=== PATIENT | female | born 1955 | race Caucasian/White ===

== ENCOUNTER 2017-05-30 07:07 | Day surgery (SDC) | payer MEDICAID, SELFPAY ==
[2017-05-30] VITALS (7 sets, daily range): BP systolic 129–146; BP diastolic 76–96; PULSE 70–80; RESP 16; TEMP 36.4–36.8; O2SAT 94–100; BMI 45.2
--- NOTE | 2017-05-30 06:30 | RAD_ITS ---
PROCEDURE: Epidural injection. DATE OF EXAMINATION: Chronic low back pain. INDICATION: Female, 62 years old. Intraoperative fluoroscopic imaging provided for epidural injection. RAD/Spine 1 View Any Level IMPRESSION: Intraoperative fluoroscopic services provided for epidural injection. Electronically Signed: Deonte Palencia MD at 12:34 EST Tel [phone], Service support ,
[2017-05-30 07:47] LABS: Bedside Glucose 128 mg/dL (70-110)
[2017-05-30] MEDS: Triamcinolone Acetonide 40 MG/ML Vial (09:20)
== END 2017-05-30 10:23 | disposition home or self-care (01) ==
LOC: SDC 07:08 → AC 07:09
PROVIDERS: Family Provider Family Medicine; PCP Family Medicine; Visit Provider Anesthesiology Pain Medicine
PROC: 3E0S3BZ Introduction of Anesthetic Agent into Epidural Space, Percutaneous Approach (ICD-10-PCS; CPT 62322; principal; 2017-05-30 08:40)
DX: M51.16 Intervertebral disc disorders with radiculopathy, lumbar region (principal); M51.26 Other intervertebral disc displacement, lumbar region; G89.29 Other chronic pain; Z79.899 Other long term (current) drug therapy; Z79.82 Long term (current) use of aspirin; Z79.891 Long term (current) use of opiate analgesic; I10 Essential (primary) hypertension; Z87.891 Personal history of nicotine dependence; I25.10 Atherosclerotic heart disease of native coronary artery without angina pectoris; R01.1 Cardiac murmur, unspecified; G25.81 Restless legs syndrome; K21.9 Gastro-esophageal reflux disease without esophagitis; Z86.711 Personal history of pulmonary embolism; D64.9 Anemia, unspecified; E11.9 Type 2 diabetes mellitus without complications; F32.9 Major depressive disorder, single episode, unspecified
CPT/HCPCS: 01936; 64483; 72020; 77003; 82962; J7120

== ENCOUNTER → 2017-06-21 11:54 | Outpatient (CLI) | payer MEDICAID, SELFPAY ==
--- NOTE | 2017-06-21 12:05 | RAD_ITS ---
STUDY: X-RAY - PELVIS AND BILATERAL HIPS REASON FOR EXAM: Female, 62 years old. Pain. TECHNIQUE: Radiological exam, hip, bilateral, with pelvis when performed; 2 views COMPARISON: None. FINDINGS: There is a non-specific bowel gas pattern. Normal visualized soft tissue structures. There are atherosclerotic vascular calcifications. Normal bilateral iliac wings, sacroiliac joints and visualized sacrum. Normal bilateral superior and inferior pubic rami. Normal pubic symphysis. Normal bilateral ischial tuberosities. Normal visualized right femoral head. Normal right acetabulum. Normal right hip joint. Normal visualized left femoral head. Normal left acetabulum. Normal left hip joint. RAD/Hips B/L min 2 views w/ Pelvis IMPRESSION: Normal x-ray examination of the pelvis and bilateral hips. Electronically Signed: Adeel Santos MD at 21:01 EST , Service support ,
== END ==
PROVIDERS: Family Provider Family Medicine; PCP Family Medicine; Visit Provider Anesthesiology Pain Medicine
DX: M25.551 Pain in right hip (principal); M25.552 Pain in left hip
CPT/HCPCS: 73521

== ENCOUNTER 2018-06-06 10:07 | Inpatient (IN) | payer SELFPAY ==
[2018-06-06] VITALS (10 sets, daily range): BP systolic 125–184; BP diastolic 69–101; PULSE 63–84; RESP 16–26; TEMP 36.6–37.1; O2SAT 95–98; BMI 49.6; BMI 48.2; BMI 48.3
--- NOTE | 2018-06-06 10:35 | RAD_ITS ---
STUDY: X-RAY CHEST REASON FOR EXAM: Female, 63 years old. One week history of shortness of breath and chest pain. TECHNIQUE: Single AP portable view of the chest. COMPARISON: Comparison is made with prior study dated December 24, 2015. FINDINGS: There is evidence of vascular congestion and CHF. There is no demonstrated pleural abnormality. There is borderline cardiomegaly. Normal mediastinum and shyanne. Normal visualized pulmonary arteries. Normal visualized aortic arch and descending thoracic aorta. There are degenerative changes of the visualized thoracic spine. Normal visualized ribs, clavicles, and shoulders. There is no demonstrated abnormality of the visualized soft tissue structures of the upper abdomen. RAD/Chest 1 View (Portable) IMPRESSION: Vascular congestion and CHF. Electronically Signed: Deonte Palencia MD at 11:03 EST , Service support ,
--- NOTE | 2018-06-06 10:35 | EKG12_ITS ---
Test Reason : CP SOB Blood Pressure : / mmHG Vent. Rate : 086 BPM Atrial Rate : 086 BPM P-R Int : 152 ms QRS Dur : 084 ms QT Int : 368 ms P-R-T Axes : 060 046 034 degrees QTc Int : 440 ms Normal sinus rhythm Normal ECG Confirmed by FRANCIS RAMSEY, CONCHA ([id number]), assignment editor DEREK ROBB ([id number]) on 06/09/2018 3:21:43 PM Referred By: Jaspreet Vora Confirmed By:CONCHA BLANCO MD
[2018-06-06 10:43] LABS: Absolute Lymphocyte Count 1.44 X10^3/ul (0.83-4.51); Absolute Neutrophil Count 3.7 X10^3/uL (2.0-7.7); Basophil# 0.05 X10^3/uL; Basophil% 0.8 % (0-1); Eosinophil# 0.16 X10^3/uL; Eosinophils% 2.6 % (0-5); Hematocrit 36.9 % (37-47); Lymphocyte # 1.44 X10^3/ul (4.0); Mean Corp Hgb Conc 29.8 g/gl (32-36); Mean Corpuscular Hgb 27.8 pg (27.0-32.0); Mean Corpuscular Volume 93.4 fL (81-99); Mean Platelet Vol. 10.8 fl (6.2-12.0); Monocyte% 14.4 % (0-10); Neutrophil # 3.69 X10^3/uL (2.7-7.7); Neutrophil % 58.9 % (47-70); Platelet Count 216 K/mm3 (150-450); RBC Distribution Width CV 14.8 % (11.6-14.6); RBC Distribution Width SD 49.6 fl (35.1-43.9); Red Blood Count 3.95 M/mm3 (4.2-5.4); White Blood Count 6.3 K/mm3 (4.4-11.0)
[2018-06-06 10:44] LABS: POSITIVE COUNT NO; POSITIVE DIFFERENTIAL NO; POSITIVE MORPHOLOGY NO
--- NOTE | 2018-06-06 10:50 | ED.VISSUMM ---
- ER Visit Summary Date of Service: 06/06/18 Chief Complaint: Chest pain History of Present Illness: The patient is a 63 F 3 of noncemented diabetes currently off her meds. Hypertension, high cholesterol and prior DVT and PE. Off blood thinners because she was taken off from his blood clots for several years ago. She states that she has had chest pain for the last week which feels like an elephant on her chest. Associated with exertion and exertional dyspnea. Currently she states she is pain-free. One week ago to 2 weeks ago she ran out of her blood pressure medication and then about a week ago ran out of her diuretic. Those have since been refilled by the primary care physician's office calling them in. Initially she felt like she was retaining fluids with swelling in her abdomen hands face and legs. She said he was restarting the medications she still feels swollen and the pain has not gotten any better. Currently she is pain-free. She denies any known cardiac disease, stents or any prior bypass. She states this is totally different than the pain she had before when she had pulmonary emboli. She denies any pleuritic component. She denies any hemoptysis. She denies any calf pain. Physical Examination: Older female no acute distress. Initial blood pressure 184/101. Pulse ox 95% on room air no hypoxia. H EENT exam unremarkable. Neck nontender no JVD. Lungs clear to auscultation bilaterally. Heart regular rate and rhythm rate about 80 no murmur. Chest wall nontender. No ecchymosis or bruising. Abdomen soft nontender. Normal bowel sounds no peritoneal signs. Obese. Remedies moves all 4. Equal symmetrical radial pulses. 5 out of 5 paving supervisor strength. Dorsi plantar flexion intact. Trace to 1+ edema bilaterally. Calves nontender. No cords. Neurologically she is awake alert with no focal motor deficits. Test Results: Chest x-ray portable 1 view read by myself and radiologist shows consistent with CHF. EKG sinus rhythm rate 86 with no acute signs of KS or anemia. CBC White count of 6 hemoglobin 11. Electrolytes unremarkable normal BUN/creatinine and gap. Glucose elevated 211 INR normal. Troponin normal. BNP is only 41. Emergency Department Course and Treatment: Patient undergo cardiac workup. Patient doing well at 11 AM. Currently pain-free. She will be treated with IV Lasix for her congestive heart failure on chest x-ray. I will speak to hospitalist about admission for chest pain of uncertain etiology. Treatment Plan: Admission Disposition: Admission Impression: Acute exertional chest pain of uncertain etiology with exertional dyspnea CHF Medical noncompliance This note was generated with [employer] dictation software. It may contain incorrect words, spelling, and punctuation that were not noted in review of the chart prior to signing ED Disposition - Plan for ED Patient: Chief Complaint: Chest Pain Referrals: Jerald Mckeon MD [Primary Care Provider] -
--- NOTE | 2018-06-06 10:53 | ED.DCSUM_ITS ---
- ER Visit Summary Date of Service: 06/06/18 Chief Complaint: Chest pain History of Present Illness: The patient is a 63 F 3 of noncemented diabetes currently off her meds. Hypertension, high cholesterol and prior DVT and PE. Off blood thinners because she was taken off from his blood clots for several ye ars ago. She states that she has had chest pain for the last week which feels like an elephant on her chest. Associated with exertion and exertional dyspnea. Currently she states she is pain-free. One week ago to 2 weeks ago she ran out of her blood pressure medication and then about a week ago ran out of her diuretic. Those have since been refilled by the primary care physician's office calling them in. Initially she felt like she was retaining fluids with swelling in her abdomen hands face and legs. She said he was restarting the medications she still feels swollen and the pain has not gotten any better. Currently she is pain-free. She denies any known cardiac disease, stents or any prior bypass. She states this is totally different than the pain she had before when she had pulmonary emboli. She denies any pleuritic component. She denies any hemoptysis. She denies any calf pain. Physical Examination: Older female no acute distress. Initial blood pressure 184/101. Pulse ox 95% on room air no hypoxia. H EENT exam unremarkable. Neck nontender no JVD. Lungs clear to auscultation bilaterally. Heart regular rate and rhythm rate about 80 no murmur. Chest wall nontender. No ecchymosis or bruising. Abdomen soft nontender. Normal bowel sounds no peritoneal signs. Obese. Remedies moves all 4. Equal symmetrical radial pulses. 5 out of 5 outbound sales professional strength. Dorsi plantar flexion intact. Trace to 1+ edema bilaterally. Calves nontender. No cords. Neurologically she is awake alert with no focal motor deficits. Test Results: Chest x-ray portable 1 view read by myself and radiologist shows consistent with CHF. EKG sinus rhythm rate 86 with no acute signs of VT or anemia. CBC White count of 6 hemoglobin 11. Electrolytes unremarkable normal BUN/creatinine and gap. Glucose elevated 211 INR normal. Troponin normal. BNP is only 41. Emergency Department Course and Treatment: Patient undergo cardiac workup. Patient doing well at 11 AM. Currently pain-free. She will be treated with IV Lasix for her congestive heart failure on chest x-ray. I will speak to hospitalist about admission for chest pain of uncertain etiology. Treatment Plan: Admission Disposition: Admission Impression: Acute exertional chest pain of uncertain etiology with exertional dyspnea CHF Medical noncompliance This note was generated with [employer] dictation software. It may contain incorrect words, spelling, and punctuation that were not noted in review of the chart prior to signing ED Disposition - Plan for ED Patient: Chief Complaint: Chest Pain Referrals: Jerald Mckeon MD [Primary Care Provider] -
[2018-06-06 11:00] LABS: Anion Gap 10 (5-15); BUN 13 mg/dL (7-18); BUN/Creat Ratio 15.6 RATIO (10-20); Calcium,Total 8.1 mg/dL (8.5-10.1); Chloride 103 mmol/L (98-107); Creatinine, Serum 0.83 mg/dL (0.55-1.02); EST Glomerular Filtration Rate 74 mL/min (>60); Est Glom Filt Rate - Afr Amer 89 mL/min (>60); Estimated Creatinine Clearance 60.69 ml/min; Glucose 211 mg/dL (74-106); Potassium 3.9 mmol/L (3.5-5.1); Sodium Level 139 mmol/L (136-145)
[2018-06-06 11:07] LABS: Prothrombin Time (Protime)PT. 12.8 SECONDS (11.7-14.9)
[2018-06-06 11:08] LABS: BNP,B-Type NATRIURETIC PEPTIDE 41.2 pg/mL (0-100)
[2018-06-06] MEDS: Aspirin 81 MG TAB.CHEW 324 MG PO (11:25)
[2018-06-06] MEDS: Furosemide 40 MG/4 ML Vial IV (11:25)
--- NOTE | 2018-06-06 12:21 | ECHOD_ITS ---
Reason For Study: CHF Procedure This was a 2D Doppler, Color Flow transthoracic echocardiogram. The study was technically difficult. Exam performed portable in patient room. Left Ventricle Based upon the 2D echocardiographic images obtained there appears to be grossly normal left ventricular size, wall motion, and systolic function. The estimated ejection fraction is 55 %. Diastolic function is indeterminate. Right Ventricle Normal RV size. Normal systolic function. Atria Normal left atrium. Normal right atrium. No doppler evidence for ASD. Mitral Valve Normal mitral valve. The mitral valve chordae are thickened and/or calcified. Trivial mitral valve insufficiency. Tricuspid Valve Normal tricuspid valve. Trivial tricuspid valve insufficiency. Unable to estimate RV systolic pressure/pulmonary artery pressure due to technically difficult study. Aortic Valve The aortic valve is not well visualized. Pulmonic Valve The pulmonic valve is not well visualized. Great Vessels Normal sized aortic root. Pericardium/Pleural No pericardial effusion. MMode/2D Measurements & Calculations LVIDd: 5.0 cm IVSd: 1.1 cm Ao root diam: 2.5 cm LVIDs: 3.4 cm LVPWd: 1.1 cm RVDd: 3.4 cm FS: 31.6 % LAV(MOD-bp): 65.0 ml LA A4 area: 20.3 cm2 LA dimension(2D): 2.8 cm LAV(MOD-bp) Indexed: 28.8 ml/m2 LAV(MOD-sp2): 63.7 ml LAV(MOD-sp4): 63.6 ml RA A4 area: 15.8 cm2 Doppler Measurements & Calculations MV E max frankie: 93.0 cm/sec Lat Peak E' Frankie: 9.8 cm/sec Med Peak E' Frankie: 7.4 cm/sec MV A max frankie: 84.4 cm/sec E/E' lat: 9.5 E/E' med: 12.6 MV E/A: 1.1 Ao V2 max: 145.6 cm/sec LV V1 max: 95.5 cm/sec PA V2 max: 95.6 cm/sec Ao max P.5 mmHg LV V1 max P.7 mmHg Interpretation Summary The study was technically difficult. Based upon the 2D echocardiographic images obtained there appears to be grossly normal left ventricular size, wall motion, and systolic function. The estimated ejection fraction is 55 %. The mitral valve chordae are thickened and/or calcified. Trivial mitral valve insufficiency. Trivial tricuspid valve insufficiency. Unable to estimate RV systolic pressure/pulmonary artery pressure due to technically difficult study. Diastolic function is indeterminate. Ordering Physician: Pinky Vora Referring Physician: Jerald Mckeon Performed By: Kenia Frias, LIA, RVT
--- NOTE | 2018-06-06 12:22 | EKG12_ITS ---
Test Reason : CP ADMIT Blood Pressure : / mmHG Vent. Rate : 068 BPM Atrial Rate : 068 BPM P-R Int : 158 ms QRS Dur : 084 ms QT Int : 418 ms P-R-T Axes : 068 050 039 degrees QTc Int : 444 ms Normal sinus rhythm with sinus arrhythmia Normal ECG Confirmed by POLLO RAMSEY, ADRIÁN ([id number]), assistant film editor DEREK ROBB ([id number]) on 06/08/2018 8:28:16 AM Referred By: Jaspreet Vora Confirmed By:ADRIÁN ABAD MD
[2018-06-06 13:13] LABS: Magnesium 1.4 mg/dL (1.6-2.6); Thyroid Stim Hormone (TSH) 3.73 uIU/mL (0.358-3.74)
--- NOTE | 2018-06-06 13:21 | PCM.HP.STD ---
Problem List (1) Super obesity Status: Chronic (2) Chest tightness or pressure Status: Acute (3) Diastolic CHF Status: Acute Qualifiers: Heart failure chronicity: acute Qualified Code(s): I50.31 - Acute diastolic (congestive) heart failure (4) Hypertensive emergency Status: Acute Comment: with acute CHF (5) Depression Status: Chronic (6) Chronic pain Status: Chronic Qualifiers: Chronic pain type: other chronic pain Qualified Code(s): G89.29 - Other chronic pain Comment: back pain (7) CELIA (iron deficiency anemia) Status: Resolved Qualifiers: Iron deficiency anemia type: chronic blood loss Qualified Code(s): D50.0 - Iron deficiency anemia secondary to blood loss (chronic) (8) CAD (coronary artery disease) Status: Chronic (9) HTN (hypertension) Status: Chronic Comment: pt denies but, this is listed on an old H&P (10) Hyperlipemia Status: Chronic (11) Pulmonary embolism on right Status: Resolved Comment: provoked(following abdominal surgery) (12) Type II diabetes mellitus Status: Chronic (13) History of Prudencio-en-Y gastric bypass Status: Chronic (14) Former smoker, stopped smoking many years ago Status: Acute Comment: stopped smoking in 1999 History of Present Illness Date of Admission: 06/06/18 Chief Complaint: shortness of breath and chest pressure with exertion The patient is a 63 year old F with a past medical history of depression, chronic back pain, narcotic dependence, superobesity, coronary artery disease (pt denies), hypertension, hyperlipidemia, pulmonary embolism following abdominal surgery, diabetes mellitus type 2 ( no medication for quite a while), Prudencio-en-Y gastric bypass, former smoking history (quit in 1999) who presented to the emergency department at [facility] on 06/06/2018 complaining of dyspnea on exertion, chest heaviness with exertion, edema of her legs and a 12 pound weight gain recently. She ran out of her antihypertensives and diuretics approximately 2 weeks ago. She got her prescriptions refilled recently and the edema has improved but the chest pressure and the [place] have persisted. She tells me that she lost her job, then lost her insurance and she could not afford to go to the doctor or pay for medications. Vital signs of presentation to the emergency room were temp 98.1, pulse rate 84, blood pressure 184/101, respiratory rate 26 and she was 95% saturated on room air. White blood cell count was within normal limits. BMP was unremarkable. Troponin was less than 0.015 and the BNP was 41.2. Hemoglobin A1c is uncontrolled at 8.4. Chest x-ray showed increased pulmonary vascular congestion consistent with congestive heart failure. She tells me that she has had stress tests in the past and 2 cardiac catheterizations and she has no CAD....can not remember the date of the last cath OR where it was done. Past Medical History Past Medical History (Chronic Problems): Chronic Problems Super obesity (Chronic) Depression (Chronic) Chronic pain (Chronic) back pain History of Prudencio-en-Y gastric bypass (Chronic) Type II diabetes mellitus (Chronic) CAD (coronary artery disease) (Chronic) Hyperlipemia (Chronic) HTN (hypertension) (Chronic) pt denies but, this is listed on an old H&P Allergies naproxen Adverse Reaction (Verified 06/06/18 10:16) Itching Home Medications: Ambulatory Orders Medication Instructions Recorded Calcium Carbonate/Vitamin D3 1 each PO BID 09/27/13 [Calcium 600-Vit D3 800 Tablet] Cyanocobalamin (Vitamin B-12) 1,000 mcg PO DAILY 09/27/13 [Vitamin B-12] DiphenhydrAMINE [Benadryl] 50 mg PO QHS PRN PRN 09/27/13 Fluoxetine [Prozac] 20 mg PO DAILY 09/27/13 Gabapentin [Neurontin] 300 mg PO 4X/DAY 09/27/13 Lisinopril [Zestril] 10 mg PO DAILY 09/27/13 Multivitamin No.44/Vit D3/K 1 each PO DAILY 09/27/13 [Multivitamins Softgels] Pravastatin [Pravachol] 20 mg PO QHS 09/27/13 Triamterene 75MG/Hctz 50MG 1 tablet PO DAILY 09/27/13 [Maxzide] Aspirin [Aspirin, Baby] 81 mg PO QHS 09/28/13 Atenolol 25 mg PO QHS 08/21/16 Oxycodone HCl/Acetaminophen 1 tab PO Q6H 08/21/16 [Oxycodon-Acetaminophen 7.5-325] Iron Poly/Vit C [Niferex-150] 150 mg PO DAILYCM #60 capsule 08/22/16 Pantoprazole Sodium [Protonix] 40 mg PO DAILY #60 tablet 08/22/16 Biotin 5 mg PO DAILY 06/06/18 Lactobacillus Rhamnosus GG 1 each PO DAILY 06/06/18 [Culturelle] Surgical History: cholecystectomy, hysterectomy, total knee arthroplasty, - - Breast reduction surgery, gastric bypass, cholecystectomy, 2 knee replacements, right lung nodule resection, mediastinoscopy, carpal tunnel surgery, multiple D&C Psychiatric History: Depression 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 Another brother has heart issues Review of Systems Constitutional: Reports: - - tells me that she is hungry all the time and has gained 40 lbs. Denies: Chills, Fever, Night Sweats, Weight Change Eyes: Denies: Blurred vision HEENT: Denies: Head Aches, Sinus Congestion, Sinus Drainage Cardiovascular: Reports: Chest Pressure, Edema, Orthopnea - wedny when lying on the Left side. Denies: Light Headedness, Palpitations Respiratory: Reports: Shortness of breath at rest, Shortness of breath upon exertion. Denies: Cough, Pleuritic Pain, Sputum production, Wheezing Gastrointestinal: Denies: Abdominal Pain, Nausea, Vomiting Genitourinary: Denies: Dysuria Musculoskeletal: Reports: Back Pain - chronic. Denies: Joint Pain, Joint Tenderness Skin: Denies: Rash, Wounds Neurological: Denies: Focal weakness, Numbness, Tingling, Seizures Psychiatric: Denies: Anxiety, Depression, Homicidal Ideations, Suicidal Ideations Endocrine: Reports: Change in Body Habitus - has gained 40 lbs since losing her job and losing health insurance Hematologic/ Lymphatic: Reports: Hx of blood clot - PE after abdominal surgery in Dec 2015. Denies: Easy Bruising, Easy Bleeding VTE Information - Inpt Only VTE Present on Admission: No VTE Mechan Device Prophylaxis: Knee High GOPI Hose VTE Pharm Prophylaxis ordered?: Yes Patient Problems: Active and Suspected Problems Chest tightness or pressure (Acute) Diastolic CHF (Acute) Hypertensive emergency (Acute) with acute CHF Former smoker, stopped smoking many years ago (Acute) stopped smoking in 1999 - Physical Exam General: Alert, Oriented x3, Cooperative, No apparent distress, Well developed, Well nourished HEENT: Atraumatic, PERRLA, EOMI, Normocephalic Oral: Moist Mucosa Neck: Supple, No JVD, Negative Carotid Bruits Lungs: Diminished, Rales - few in the bases - has already urinated several times since the Lasix in the ER Cardiovascular: Regular rate, Normal S1, Normal S2, No murmurs, No rub noted, No Gallop Abdomen: Bowel Sounds Present, Soft, Non Tender, Non-Distended, Obese Extremities: No clubbing, No cyanosis, Capillary Refill Less than 3 Seconds, Edema - 1+ distal LE's Skin: No rashes, No breakdown Musculoskeletal: No Tenderness to Palpation of Joints or Extremities Neurological: Cranial nerves II-XII grossly intact, Neuro grossly intact Psych/Mental Status: Normal Affect, Appropriate Vital Signs Temp Pulse Resp BP Pulse Ox 98.4 F 63 18 125/79 H 96 06/06/18 12:23 06/06/18 12:23 06/06/18 12:23 06/06/18 12:23 06/06/18 12:23 Oxygen Flow Rate (L/min) 2 Oxygen Delivery Method Room Air Weight: 281 lb 4.957 oz Body Mass Index (BMI) 48.2 Laboratory Tests Past 24 Hrs 06/06/18 06/06/18 06/06/18 10:34 10:34 10:34 WBC 6.3 RBC 3.95 L Hgb 11.0 L Hct 36.9 L MCV 93.4 MCH 27.8 MCHC 29.8 L RDW 14.8 H RDW Differential 49.6 H Plt Count 216 MPV 10.8 Immature Gran % (Auto) 0.300 Neut % (Auto) 58.9 Lymph % (Auto) 23.0 Lyman % (Auto) 14.4 H Eos % (Auto) 2.6 Baso % (Auto) 0.8 Absolute Neuts (auto) 3.7 Absolute Lymphs (auto) 1.44 Total Counted Not Reportable PT INR Sodium 139 Potassium 3.9 Chloride 103 Carbon Dioxide 26.0 Anion Gap 10 BUN 13 Creatinine 0.83 Estim Creat Clear Calc 60.69 Est GFR (MDRD) Af Amer 89 Est GFR (MDRD) Non-Af 74 BUN/Creatinine Ratio 15.6 Glucose 211 H Hemoglobin A1c Calcium 8.1 L Magnesium Troponin I < 0.015 B-Natriuretic Peptide 41.2 TSH 06/06/18 06/06/18 06/06/18 10:34 10:34 13:00 WBC RBC Hgb Hct MCV MCH MCHC RDW RDW Differential Plt Count MPV Immature Gran % (Auto) Neut % (Auto) Lymph % (Auto) Lyman % (Auto) Eos % (Auto) Baso % (Auto) Absolute Neuts (auto) Absolute Lymphs (auto) Total Counted PT 12.8 INR 1.0 Sodium Potassium Chloride Carbon Dioxide Anion Gap BUN Creatinine Estim Creat Clear Calc Est GFR (MDRD) Af Amer Est GFR (MDRD) Non-Af BUN/Creatinine Ratio Glucose Hemoglobin A1c Pending Calcium Magnesium 1.4 L Troponin I B-Natriuretic Peptide TSH 3.73 Assessment/Plan All Active Problems Chest tightness or pressure (Acute) Diastolic CHF (Acute) Hypertensive emergency (Acute) Former smoker, stopped smoking many years ago (Acute) CELIA (iron deficiency anemia) (Resolved) Pulmonary embolism on right (Resolved) Impressions 1. hypertensive emergency with acute CHF 2. uncontrolled HTN -m due to non-compliance with medication 3. chest pressure with exertion 4. uncontrolled DM II - states she has gained 40 lbs and she is hungry all the time 5. super morbid obesity with a BMI of 48 6. Depression 7. Chronic back pain-follows with Dr. Dr. Alberts 8. Chronic narcotic dependence 9. Provoked pulmonary embolus in the past 10. Hyperlipidemia 11. History of Prudencio-en-Y gastric bypass 12. Former smoker-quit in 1999 Admit to a monitored bed on PCU Weigh at admission to the floor and then daily Acccurate I&O's Chest XRAY BNP Given 40 mg IV of Lasix in the emergency department and her lungs are currently clear to auscultation. I suspect this is primarily diastolic dysfunction and will resolve with blood pressure control. We will restart hydrochlorothiazide/triamterene for blood pressure control ECHO to evaluate LV EF and wall motion Recheck lab in the AM Salt restriction Dietary consult for education regarding low sodium diet Serial cardiac enzymes Chemical nuclear stress test in the a.m. Code Visit Inpatient E&M: 54412 Init Hosp L3
[2018-06-06 13:27] LABS: Hemoglobin A1c 8.4 % (4.2-6.3)
--- NOTE | 2018-06-06 13:39 | CASEMGMT ---
Per Dr. Vora, she would like Behavioral health consulted for pt at this time for depression. Call to Jonathan at [facility] and referral made at this time. Jonathan states he may be able to come this afternoon but if not then he will definitely come tomorrow. Dr. Vora aware and voices understanding. Jose ZAMUDIO CM
[2018-06-06] MEDS: Lisinopril 10 MG Tablet PO (15:48)
[2018-06-06 17:01] LABS: Bedside Glucose 149 mg/dL (70-110)
[2018-06-06] MEDS: oxyCODONE 5 MG Tablet PO (18:21)
[2018-06-06] MEDS: Acetaminophen 325 MG Tablet 650 MG PO (18:21)
[2018-06-06] MEDS: 0.9% NaCl Peripheral Flush Adult/Peds IV ×2 (18:50→22:15)
[2018-06-06] MEDS: Gabapentin 300 MG Capsule PO (22:14)
[2018-06-06] MEDS: Pravastatin 20 MG Tablet PO (22:14)
[2018-06-06] MEDS: Aspirin 81 MG TAB.CHEW PO (22:14)
[2018-06-06] MEDS: Atenolol 25 MG Tablet PO (22:14)
[2018-06-06] MEDS: Insulin Lispro 100 UNIT/ML INSULN.PEN SC (22:15)
[2018-06-06 22:16] LABS: Bedside Glucose 262 mg/dL (70-110)
[2018-06-06] MEDS: MELATONIN 3 MG TABLET PO (22:33)
[2018-06-07] VITALS (11 sets, daily range): BP systolic 132–159; BP diastolic 70–86; PULSE 59–82; RESP 15–16; TEMP 36.5–37.2; O2SAT 95–97
[2018-06-07 05:23] LABS: Hematocrit 38.1 % (37-47); Hemoglobin 11.5 g/dl (12.0-15.0); Mean Corp Hgb Conc 30.2 g/gl (32-36); Mean Corpuscular Volume 92.9 fL (81-99); Mean Platelet Vol. 11.3 fl (6.2-12.0); Platelet Count 226 K/mm3 (150-450); RBC Distribution Width CV 14.7 % (11.6-14.6); RBC Distribution Width SD 47.6 fl (35.1-43.9); White Blood Count 5.5 K/mm3 (4.4-11.0)
[2018-06-07 05:24] LABS: Scan Indicated on CBC? Y/N NO
[2018-06-07 05:26] LABS: Prothrombin Time (Protime)PT. 13.1 SECONDS (11.7-14.9)
[2018-06-07 05:46] LABS: ALB/GLOB Ratio 0.9 RATIO (0.9-2.4); AST(SGOT) 19 U/L (15-37); Alanine Aminotransfer ALT/SGPT 25 U/L (13-56); Albumin, Serum 3.3 g/dL (3.2-5.0); Alkaline Phosphatase 93 U/L (45-117); Anion Gap 9 (5-15); BUN 13 mg/dL (7-18); BUN/Creat Ratio 17.7 RATIO (10-20); Calcium,Total 8.3 mg/dL (8.5-10.1); Chloride 102 mmol/L (98-107); Cholesterol 138 mg/dL (200); Creatinine, Serum 0.74 mg/dL (0.55-1.02); EST Glomerular Filtration Rate 85 mL/min (>60); Est Glom Filt Rate - Afr Amer 103 mL/min (>60); Estimated Creatinine Clearance 68.07 ml/min; Globulin 3.6 g/dL (2.2-4.2); Glucose 193 mg/dL (74-106); High Density Lipoprotein 36 mg/dL; Magnesium 1.6 mg/dL (1.6-2.6); Potassium 4.2 mmol/L (3.5-5.1); Protein, Total 6.9 g/dL (6.4-8.2); Sodium Level 140 mmol/L (136-145); Triglycerides 191 mg/dL; Very Low Density Lipoprotein 38 mg/dL (5-40)
[2018-06-07] MEDS: Pantoprazole Sodium 40 MG Tablet PO (05:53)
[2018-06-07] MEDS: Magnesium Oxide 400 MG Tablet PO (05:53)
[2018-06-07] MEDS: Gabapentin 300 MG Capsule PO ×4 (05:53→22:17)
[2018-06-07] MEDS: Lisinopril 10 MG Tablet PO (05:53)
--- NOTE | 2018-06-07 05:55 | EKG12_ITS ---
Test Reason : AM EKG Blood Pressure : / mmHG Vent. Rate : 064 BPM Atrial Rate : 064 BPM P-R Int : 166 ms QRS Dur : 086 ms QT Int : 446 ms P-R-T Axes : 067 059 052 degrees QTc Int : 460 ms Normal sinus rhythm with sinus arrhythmia Normal ECG When compared with ECG of 06-JUN-2018 12:49, MANUAL COMPARISON REQUIRED, DATA IS UNCONFIRMED Confirmed by FRANCIS RAMSEY, CONCHA ([id number]), film editor DEREK ROBB ([id number]) on 06/09/2018 3:45:21 PM Referred By: Jaspreet Vora Confirmed By:CONCHA BLANCO MD
[2018-06-07] MEDS: oxyCODONE 5 MG Tablet PO ×3 (06:02→18:12)
[2018-06-07 06:41] LABS: Bedside Glucose 189 mg/dL (70-110)
--- NOTE | 2018-06-07 06:41 | NURSING ---
Patient off floor at this time to [facility] for stress test.
--- NOTE | 2018-06-07 06:53 | PCM.PROGNOTE ---
Patient Problems: Active and Suspected Problems Chest tightness or pressure (Acute) Diastolic CHF (Acute) Hypertensive emergency (Acute) with acute CHF Former smoker, stopped smoking many years ago (Acute) stopped smoking in 1999 Subjective: 63-year-old female admitted to [facility] on 06/06/2018 with acute diastolic congestive heart failure and chest pressure. All events the past 24 hours of been reviewed. Blood pressure has been better controlled with restarting her antihypertensives and diuresis. Blood pressure since noon on 06/06 has ranged from 125/79-155/71. Intake and output were ordered but are not accurate. Weight has decreased from 281 pounds and 4.9 ounces to 277 pounds and 1.9 ounces today. All lab was personally reviewed. Creatinine is stable at 0.74 and the electrolytes are within normal limits. Hemoglobin A1c was 8.4% and the patient has not been taking any medication for diabetes mellitus or checking her blood sugars at home. Magnesium was low at 1.4 and was supplemented with 2 g of IV mag. Magnesium today is normal at 1.6. LFTs are normal. LDL is 64 and the HDL is 36. TSH was within normal limits. Highest blood sugar was 262. Chemical nuclear stress test negative today with a 54% gated nuclear ejection fraction Telemetry shows normal sinus rhythm with one 5 beat run of nonsustained ventricular tachycardia this morning. She continues to complain of chest pressure and shortness of breath with exertion Objective: PHYSICAL EXAM: GENERAL: alert, oriented X 3, Cooperative, looks apprehensive ORAL: moist mucosa, no mucosal lesions NECK: No JVD, supple, trachea midline LUNGS: CTA but diminished, symmetric chest expansion no conversational dyspnea, not tachypneic at rest, no accessory muscle use HEART: RRR, Normal S1 and S2, no rub, no gallop, no murmur ABDOMEN: soft, NT, ND, BS present, no guarding with palpation EXTREMITIES: no edema, no cyanosis, no calf tenderness SKIN: No rashes, no breakdown NEUROLOGIC: no focal neurologic deficits PSYCH: appropriate, normal affect, pleasant - Physical Exam Vital Signs Temp Pulse Resp BP Pulse Ox 98.4 F 67 16 155/71 H 95 06/07/18 05:45 06/07/18 05:45 06/07/18 05:45 06/07/18 05:45 06/07/18 05:45 Oxygen Flow Rate (L/min) 2 Oxygen Delivery Method Room Air Weight: 277 lb 1.937 oz Body Mass Index (BMI) 48.2 Intake and Output for Last 24 Hours 06/05/18 06/06/18 06/07/18 23:59 23:59 23:59 Intake Total 200 / 200 339.2 / 339.2 Balance 200 / 200 339.2 / 339.2 Laboratory Tests Past 24 Hrs 06/06/18 06/06/18 06/06/18 10:34 10:34 10:34 WBC 6.3 RBC 3.95 L Hgb 11.0 L Hct 36.9 L MCV 93.4 MCH 27.8 MCHC 29.8 L RDW 14.8 H RDW Differential 49.6 H Plt Count 216 MPV 10.8 Immature Gran % (Auto) 0.300 Neut % (Auto) 58.9 Lymph % (Auto) 23.0 Tarrant % (Auto) 14.4 H Eos % (Auto) 2.6 Baso % (Auto) 0.8 Absolute Neuts (auto) 3.7 Absolute Lymphs (auto) 1.44 Total Counted Not Reportable PT INR Sodium 139 Potassium 3.9 Chloride 103 Carbon Dioxide 26.0 Anion Gap 10 BUN 13 Creatinine 0.83 Estim Creat Clear Calc 60.69 Est GFR (MDRD) Af Amer 89 Est GFR (MDRD) Non-Af 74 BUN/Creatinine Ratio 15.6 Glucose 211 H Hemoglobin A1c Calcium 8.1 L Magnesium Total Bilirubin AST ALT Alkaline Phosphatase Troponin I < 0.015 B-Natriuretic Peptide 41.2 Total Protein Albumin Globulin Albumin/Globulin Ratio Triglycerides Cholesterol LDL Cholesterol VLDL Cholesterol HDL Cholesterol TSH 06/06/18 06/06/18 06/06/18 10:34 10:34 13:00 WBC RBC Hgb Hct MCV MCH MCHC RDW RDW Differential Plt Count MPV Immature Gran % (Auto) Neut % (Auto) Lymph % (Auto) Tarrant % (Auto) Eos % (Auto) Baso % (Auto) Absolute Neuts (auto) Absolute Lymphs (auto) Total Counted PT 12.8 INR 1.0 Sodium Potassium Chloride Carbon Dioxide Anion Gap BUN Creatinine Estim Creat Clear Calc Est GFR (MDRD) Af Amer Est GFR (MDRD) Non-Af BUN/Creatinine Ratio Glucose Hemoglobin A1c 8.4 H Calcium Magnesium 1.4 L Total Bilirubin AST ALT Alkaline Phosphatase Troponin I B-Natriuretic Peptide Total Protein Albumin Globulin Albumin/Globulin Ratio Triglycerides Cholesterol LDL Cholesterol VLDL Cholesterol HDL Cholesterol TSH 3.73 06/06/18 06/06/18 06/07/18 13:55 16:45 05:00 WBC 5.5 RBC 4.10 L Hgb 11.5 L Hct 38.1 MCV 92.9 MCH 28.0 MCHC 30.2 L RDW 14.7 H RDW Differential 47.6 H Plt Count 226 MPV 11.3 Immature Gran % (Auto) Neut % (Auto) Lymph % (Auto) Tarrant % (Auto) Eos % (Auto) Baso % (Auto) Absolute Neuts (auto) Absolute Lymphs (auto) Total Counted PT INR Sodium Potassium Chloride Carbon Dioxide Anion Gap BUN Creatinine Estim Creat Clear Calc Est GFR (MDRD) Af Amer Est GFR (MDRD) Non-Af BUN/Creatinine Ratio Glucose Hemoglobin A1c Calcium Magnesium Total Bilirubin AST ALT Alkaline Phosphatase Troponin I < 0.015 < 0.015 B-Natriuretic Peptide Total Protein Albumin Globulin Albumin/Globulin Ratio Triglycerides Cholesterol LDL Cholesterol VLDL Cholesterol HDL Cholesterol TSH 06/07/18 06/07/18 05:00 05:00 WBC RBC Hgb Hct MCV MCH MCHC RDW RDW Differential Plt Count MPV Immature Gran % (Auto) Neut % (Auto) Lymph % (Auto) Tarrant % (Auto) Eos % (Auto) Baso % (Auto) Absolute Neuts (auto) Absolute Lymphs (auto) Total Counted PT 13.1 INR 1.0 Sodium 140 Potassium 4.2 Chloride 102 Carbon Dioxide 29.0 Anion Gap 9 BUN 13 Creatinine 0.74 Estim Creat Clear Calc 68.07 Est GFR (MDRD) Af Amer 103 Est GFR (MDRD) Non-Af 85 BUN/Creatinine Ratio 17.7 Glucose 193 H Hemoglobin A1c Calcium 8.3 L Magnesium 1.6 Total Bilirubin 1.10 H AST 19 ALT 25 Alkaline Phosphatase 93 Troponin I B-Natriuretic Peptide Total Protein 6.9 Albumin 3.3 Globulin 3.6 Albumin/Globulin Ratio 0.9 Triglycerides 191 Cholesterol 138 LDL Cholesterol 64 VLDL Cholesterol 38 HDL Cholesterol 36 L TSH POC Glucose 06/07/18 06/06/18 06/06/18 05:49 22:11 15:47 POC Glucose 189 H 262 H 149 H Medical Necessity - Tobacco Use Smoking Status: Former smoker - quit in 1999 Tobacco Use: Non-smoker Assessment/Plan All Active Problems Chest tightness or pressure (Acute) Diastolic CHF (Acute) Hypertensive emergency (Acute) Former smoker, stopped smoking many years ago (Acute) CELIA (iron deficiency anemia) (Resolved) Pulmonary embolism on right (Resolved) Impressions 1. hypertensive emergency with acute CHF 2. uncontrolled HTN -m due to non-compliance with medication 3. chest pressure with exertion 4. uncontrolled DM II - states she has gained 40 lbs and she is hungry all the time 5. super morbid obesity with a BMI of 48 6. Depression 7. Chronic back pain-follows with Dr. Dr. Alberts 8. Chronic narcotic dependence 9. Provoked pulmonary embolus in the past 10. Hyperlipidemia 11. History of Prudencio-en-Y gastric bypass 12. Former smoker-quit in 1999 13. Negative chemical nuclear stress with a normal EF but with NSVT this AM and persistent c/o chest pressure and [place]. Potassium and magnesium are within normal limits. Dr. Vázquez consulted and will do cath in the AM if the pt is agreeable Supplement the magnesium to keep it around 2. Will start an oral agent for uncontrolled DM. seen by the crew leader/control room operator and she is not open to diet education at this time......admits to a recent weight gain 40 lbs....she is working at [employer] 30 hours a week start Glucotrol Code Visit Inpatient E&M: 77945 Subs Hosp L2
[2018-06-07] MEDS: Insulin Lispro 100 UNIT/ML INSULN.PEN SC ×3 (09:47→16:30)
[2018-06-07] MEDS: Triamterene 75MG/Hctz 50MG Tablet 1 TABLET PO (09:48)
--- NOTE | 2018-06-07 09:56 | STRESSREP ---
Stress Test Report Pharmacologic myocardial perfusion stress test. 63-year-old lady with a history of chest pain. Medications: Atenolol Colace Neurontin Zestril. Stress protocol: Resting EKG demonstrates normal sinus rhythm with a rate of 61 bpm normal intervals are noted resting blood pressure 118/78 mmHg. 0.4 mg of regadenoson was infused per usual protocol followed by rapid intravenous saline flush injection continuous EKG monitoring was performed. The maximum heart rate attained was 84 bpm which was 53% of maximum predicted heart rate the maximum workload was 1 metabolic equivalent. At rest there were no ST or T wave changes noted suggest peak infusion nonspecific ST-T wave changes were noted. The resting blood pressure 118/78 with a final blood pressure 112/68. Myocardial perfusion protocol. 14.8 mCi of technetium 99m sestamibi was injected at rest. 0.4 mg regadenoson was infused per usual protocol. At peak infusion to 4.7 mCi of technetium 99m sestamibi was injected stress images were obtained stress and rest images were reconstructed and compared in the short axis vertical long and horizontal long axis. Gated images were also obtained next Perfusion SPECT analysis: Review of the stress images demonstrate normal uptake of tracer noted in all areas of the myocardium. The resting images similarly demonstrate normal uptake of tracer noted in all areas of the myocardium. No areas of reversibility are noted suggest ischemia. Gated SPECT analysis: The gated ejection fraction is noted to be 54%. Conclusion: Normal pharmacologic myocardial perfusion stress test. Preserved ejection fraction.
--- NOTE | 2018-06-07 10:43 | CASEMGMT ---
RN CM MOBILE SALES TECHNICIAN CM to room to meet with patient for initial transition planning/care coordination assessment. LIZZ LUONG introduced self and role at [facility]. Pt voices understanding and consents to assessment at this time. Pt sitting up in recliner in no distress at this time. Pt is A/O at this time and answers all questions appropriately. Care providers, pharmacy, and demographics verified at this time. PCP: Linda Specialists: [facility] Pharmacy: [facility] Insurance: Self Pay Prescription Benefit: None Living Will/HPOA: does not have LW or HCPOA . Interested in more information. Provided information on advanced directives and instructed to let SW know if she would like to complete paperwork while she is here. Also, given Social Service rac card with number to call if chooses in the future to utilize [facility] social work for advanced directive completion. Educated patient that, if patient so chooses, can come back to [facility] and meet with a SW as an outpatient to complete health care advanced directives. Patient expresses understanding. LNOK: Living Arrangements: Lives with her . Independent. Transportation: Pt states drives self and states no transportation concerns at this time. DME: Denies using any DME and denies needs. HHC/SNF: Has never been to a SNF or used HHC. No needs identified. Pt wishes to return home and has no concerns with going home at time of discharge. Pt does not smoke or drink ETOH. Pt states she lost her job and then lost her insurance. has been working part-time and is not getting enough hours to get insurance through her employer. she called her PCP recently and they completed some sort of financial paperwork and states she was approved until August, but she is not sure what all this means/covers. does not have prescription coverage and would like to talk to SW about financial concerns. LINH, Lisa, notified. CM to follow for any further discharge planning/needs. Pt voices no further concerns/needs at this time. Advised pt to ask for CM if any further questions/concerns/needs arise. Voices understanding. PLAN: Home Nilay ANTONIO RN, CM
--- NOTE | 2018-06-07 11:20 | BH.NOTE ---
BH: Inpatient Note - Notes Behavioral Health Inpatient Note: 06/07/18 11:20 Referral to [facility] due to hx of depression. Met with pt in her room. Pt was cooperative. Pt denies any suicidal ideations, plan, or intent. Describes her depression as mild. No hx of mental health treatment. Denies any overwhelming stressors or anxiety. Reports that she works 30 hours a week at [employer] and lives with her and pets. Denies any substance abuse. Stressors related to finances and insurance stating that she is no longer insured and we make to much to be on Medicaid. She currently has been placed on HCAP through [facility] so that she can continue to see PCP and receive medications. We discussed outpatient options and she was given a list or local MH providers. [facility] providers in the area that have sliding fee scales and informed pt that see can still seek counseling services w/o insurance if needed.
[2018-06-07] MEDS: Enoxaparin 40 MG/0.4 ML Syringe SC (12:11)
[2018-06-07] MEDS: Acetaminophen 325 MG Tablet 650 MG PO ×2 (12:11→18:12)
[2018-06-07 12:25] LABS: Bedside Glucose 172 mg/dL (70-110)
--- NOTE | 2018-06-07 13:48 | CASEMGMT ---
Social Work SW met with pt and introduced self and role of SW. Pt states she has applied for Medicaid in the past but does not qualify. She has completed and is qualified for the Assistance [facility] at [facility] and pt was seen by [facility] PFS to complete HCAP form. Resources provided on prescription assistance programs and the [facility]. Pt does work but does not receive insurance through employer. SW inquired if she would be able to fill new prescriptions when she leaves hospital and pt confirms that she will be able to afford medication. No further SW needs at this time. LUZ Watson
--- NOTE | 2018-06-07 14:49 | PCM.CONS.C ---
Problem List (1) Unstable angina Status: Acute (2) Super obesity Status: Chronic (3) Chest tightness or pressure Status: Acute (4) Diastolic CHF Status: Acute Qualifiers: Heart failure chronicity: acute Qualified Code(s): I50.31 - Acute diastolic (congestive) heart failure (5) Hypertensive emergency Status: Acute Comment: with acute CHF (6) Former smoker, stopped smoking many years ago Status: Acute Comment: stopped smoking in 1999 (7) CAD (coronary artery disease) Status: Chronic (8) Hyperlipemia Status: Chronic (9) HTN (hypertension) Status: Chronic Comment: pt denies but, this is listed on an old H&P (10) Ventricular tachycardia Status: Acute Reason for Consult Date of Consultation: 06/07/18 Reason for Consultation: Unstable angina, ventricular tachycardia, coronary disease, hypertension, obesity, hyperlipidemia, former smoker History of Present Illness: The patient is a 63 year old F, diabetic, former smoker who quit around 18 years ago after a 70-[id number]-sphf smoking history, unknown whether she has obstructive sleep apnea or COPD, former patient of Dr. Allen who apparently underwent catheterization about 5 years ago at the [facility] where a small blockage was noted per the patient. She apparently had balloon angioplasty only but no stents at that time. She quit tobacco around 1999, and is never had a CVA or TIA. She does have a history of hypertension and hypercholesterolemia. She is status post cholecystectomy in 2000 with a Prudencio-en-Y in 2000 at that time. Patient was in normal health up until around 1 week ago when she began developing progressively worsening shortness of breath, dyspnea on exertion as well as worsening facial swelling and lower extremity edema. This gave way to substernal chest pressure as though an elephant was sitting on her chest with exertion, and relieved with rest. When things did not improve and her exercise capacity deteriorated to the point where she can only walk about 10 feet without getting symptoms she sought medical attention at [facility] ER. In the ER her EKG showed normal sinus rhythm, normal axis, normal intervals, no evidence of previous myocardial infarction. Patient underwent a 2D echo with Doppler 06/06/17 which showed intact LV function with an EF around 55%, indeterminant diastolic function, unable to quantitate RVSP. Today she underwent a non-walking nuclear stress test which was negative for inducible ischemia. While on the floor she developed 5 beats of nonsustained ventricular tachycardia which spontaneously converted back to normal sinus rhythm and a cardiac consultation was requested. On further history when she was admitted her blood pressure was 184/100, and has improved since admission. [] Past Medical History Allergies/Adverse Reactions: Allergies naproxen Adverse Reaction (Verified 06/06/18 10:16) Itching Home Medications: Ambulatory Orders Medication Instructions Recorded Calcium Carbonate/Vitamin D3 1 each PO BID 09/27/13 [Calcium 600-Vit D3 800 Tablet] Cyanocobalamin (Vitamin B-12) 1,000 mcg PO DAILY 09/27/13 [Vitamin B-12] DiphenhydrAMINE [Benadryl] 50 mg PO QHS PRN PRN 09/27/13 Fluoxetine [Prozac] 20 mg PO DAILY 09/27/13 Gabapentin [Neurontin] 300 mg PO 4X/DAY 09/27/13 Lisinopril [Zestril] 10 mg PO DAILY 09/27/13 Multivitamin No.44/Vit D3/K 1 each PO DAILY 09/27/13 [Multivitamins Softgels] Pravastatin [Pravachol] 20 mg PO QHS 09/27/13 Triamterene 75MG/Hctz 50MG 1 tablet PO DAILY 09/27/13 [Maxzide] Aspirin [Aspirin, Baby] 81 mg PO QHS 09/28/13 Atenolol 25 mg PO QHS 08/21/16 Oxycodone HCl/Acetaminophen 1 tab PO Q6H 08/21/16 [Oxycodon-Acetaminophen 7.5-325] Iron Poly/Vit C [Niferex-150] 150 mg PO DAILYCM #60 capsule 08/22/16 Pantoprazole Sodium [Protonix] 40 mg PO DAILY #60 tablet 08/22/16 Biotin 5 mg PO DAILY 06/06/18 Lactobacillus Rhamnosus GG 1 each PO DAILY 06/06/18 [Culturelle] Past Medical History (Chronic Problems): Chronic Problems Super obesity (Chronic) Depression (Chronic) Chronic pain (Chronic) back pain History of Prudencio-en-Y gastric bypass (Chronic) Type II diabetes mellitus (Chronic) CAD (coronary artery disease) (Chronic) Hyperlipemia (Chronic) HTN (hypertension) (Chronic) pt denies but, this is listed on an old H&P Surgical History: cholecystectomy, hysterectomy, total knee arthroplasty, - - Breast reduction surgery, gastric bypass, cholecystectomy, 2 knee replacements, right lung nodule resection, mediastinoscopy, carpal tunnel surgery, multiple D&C Psychiatric History: Depression BED AND BREAKFAST OPERATOR History: No pertinent BED AND BREAKFAST OPERATOR history - *Family History Maternal History Items: Diabetes, - - dementia in her mother Paternal History Items: Heart Disease - father at 46 of a presumed [place] Sibling History Items: - - sister with chronic back pain and a borhter with HTN. Another brother has heart issues Lives: Spouse/ Significant Other Smoking Status: Former smoker - quit in 1999 Tobacco Use: Non-smoker Alcohol: Occasional Drugs: None Review of Systems - Review of Systems General: Denies: Fever, Night Sweats, Fatigue Cardiovascular: Reports: Chest Discomfort, Chest Discomfort with Exertion, Chest Pressure, Chest Tightness, Chest Heaviness, Shortness of Breath, Shortness of Breath with Exertion, Peripheral Edema. Denies: Orthopnea, PND, Palpitations, Lightheadedness, Dizziness, Near Syncope, Syncope Respiratory: Denies: Cough, Sputum Production, Hemoptysis Gastrointestinal: Denies: Hematemesis, Hematochezia, Melena Genitourinary: Denies: Dysuria, Hematuria Skin: Denies: Rash Subjectve: Patient resting comfortably, no acute distress. Objective: Vital Signs Temp Pulse Resp BP Pulse Ox 97.7 F L 59 L 16 147/71 H 97 06/07/18 09:40 06/07/18 11:23 06/07/18 09:40 06/07/18 09:40 06/07/18 09:40 Oxygen Flow Rate (L/min) 2 Oxygen Delivery Method Room Air Weight: 281 lb 4.957 oz Body Mass Index (BMI) 48.2 Intake and Output for Last 24 Hours 06/05/18 06/06/18 06/07/18 23:59 23:59 23:59 Intake Total 200 / 200 639.2 / 639.2 Balance 200 / 200 639.2 / 639.2 General: Awake, Alert, Oriented x 3 HEENT: PERRL, EOMI, Sclera Non Icteric Neck: Supple, Good ROM, No Lymph Node Enlargement Lungs: Clear to auscultation Cardiovascular: Regular Rhythm, Normal S1, Normal S2, No Murmurs, No Rubs, No Gallops Vascular: No Carotid Bruits, Normal Femoral Pulses, Normal Radial Pulses, Normal Dorsalis Pedal Pulse, Normal Posterior Tibial Pulses Abdomen: Bowel Sounds Present, Soft, Non Tender, No HSM, No Organomegaly Extremities: No Cyanosis, No Clubbing, No edema Neurological: No Focal Motor or Sensory Deficit 06/06/18 16:45: Troponin I < 0.015 06/07/18 05:00: WBC 5.5, RBC 4.10 L, Hgb 11.5 L, Hct 38.1, MCV 92.9, MCH 28.0, MCHC 30.2 L, RDW 14.7 H, RDW Differential 47.6 H, Plt Count 226, MPV 11.3 06/07/18 05:00: Sodium 140, Potassium 4.2, Chloride 102, Carbon Dioxide 29.0, Anion Gap 9, BUN 13, Creatinine 0.74, Est GFR (MDRD) Af Amer 103, Est GFR (MDRD) Non-Af 85, BUN/Creatinine Ratio 17.7, Glucose 193 H, Calcium 8.3 L, Magnesium 1.6, Total Bilirubin 1.10 H, Triglycerides 191, Cholesterol 138, LDL Cholesterol 64, VLDL Cholesterol 38, HDL Cholesterol 36 L 06/07/18 05:00: PT 13.1, INR 1.0 Rhythm: EKG: ECHO: Stress Test: Cardiac Cath: PCI: CT Surgery: Holter monitor: EPS: PPM: CXR: Chest CT Scan: Assessment/Plan 1. Unstable angina: Patient is a history of coronary disease per the patient with balloon angioplasty only of an unknown vessel presumably at the [facility] around 5 years ago. We do not have any of those reports or Films at this time. Patient reports now with hypertensive urgency, has no troponin release superimposed on normal LV function, and normal stress testing. While she was convalescing she has had a 5 beat run of nonsustained self terminating wide-complex tachycardia probably consistent with ventricular tachycardia. Given the patient's constellation of symptoms, I recommended that she undergo a diagnostic coronary angiogram tomorrow morning to determine if she has any coronary artery disease that may explain her symptoms and may benefit from coronary revascularization either percutaneously or with bypass surgery. The risks/benefits of the procedure were thoroughly explained to the patient including specific attention to lack of on-site surgical backup, and the patient is agreed to proceed. She will be loaded with 300 mg of Plavix x1 now followed by 75 mg a day. 2. Hypertension: Patient does not have adequate blood pressure control at this time. I recommended that she switch from lisinopril to Hyzaar 50/12.5 mg p.o. daily and titrate up from there. Her symptoms may be larger related to uncontrolled hypertension. 3. Hyperlipidemia: Her LDL and HDL cholesterol are at goal considering her risk factors. Continue Pravachol. 4. Thank you very much for the opportunity to precipitate in the cardiac care of your patient. Consultation time took place between 230 and 3 PM. All questions answered of the patient and her cousins. Catheterization pending tomorrow morning. Code Visit Inpatient E&M: 80879 Init Hosp L2
--- NOTE | 2018-06-07 14:54 | CON.PCM_ITS ---
Problem List (1) Unstable angina Status: Acute (2) Super obesity Status: Chronic (3) Chest tightness or pressure Status: Acute (4) Diastolic CHF Status: Acute Qualifiers: Heart failure chronicity: acute Qualified Code(s): I50.31 - Acute diastolic (congestive) heart failure (5) Hypertensive emergency Status: Acute Comment: with acute CHF (6) Former smoker, stopped smoking many years ago Status: Acute Comment: stopped smoking in 1999 (7) CAD (coronary artery disease) Status: Chronic (8) Hyperlipemia Status: Chronic (9) HTN (hypertension) Status: Chronic Comment: pt denies but, this is listed on an old H&P (10) Ventricular tachycardia Status: Acute Reason for Consult Date of Consultation: 06/07/18 Reason for Consultation: Unstable angina, ventricular tachycardia, coronary disease, hypertension, obesity, hyperlipidemia, former smoker History of Present Illness: The patient is a 63 year old F, diabetic, former smoker who quit around 18 years ago after a [id number] smoking history, unknown whether she has obstructive sleep apnea or COPD, former patient of Dr. Allen who apparently underwent catheterization about 5 years ago at the [facility] where a small blockage was noted per the patient. She apparently had balloon angioplasty only but no stents at that time. She quit tobacco around 1999, and is never had a CVA or TIA. She does have a history of hypertension and hypercholesterolemia. She is status post cholecystectomy in 2000 with a Prudencio-en-Y in 2000 at that time. Patient was in normal health up until around 1 week ago when she began developing progressively worsening shortness of breath, dyspnea on exertion as well as worsening facial swelling and lower extremity edema. This gave way to substernal chest pressure as though an elephant was sitting on her chest with exertion, and relieved with rest. When things did not improve and her exercise capacity deteriorated to the point where she can only walk about 10 feet without getting symptoms she sought medical attention at [facility] ER. In the ER her EKG showed normal sinus rhythm, normal axis, normal intervals, no evidence of previous myocardial infarction. Patient underwent a 2D echo with Doppler 06/06/17 which showed intact LV function with an EF around 55%, indeterminant diastolic function, unable to quantitate RVSP. Today she underwent a non-walking nuclear stress test which was negative for inducible ischemia. While on the floor she developed 5 beats of nonsustained ventricular tachycardia which spontaneously converted back to normal sinus rhythm and a cardiac consultation was requested. On further history when she was admitted her blood pressure was 184/100, and has improved since admission. [] Past Medical History Allergies/Adverse Reactions: Allergies naproxen Adverse Reaction (Verified 06/06/18 10:16) Itching Home Medications: Ambulatory Orders Medication Instructions Recorded Calcium Carbonate/Vitamin D3 1 each PO BID 09/27/13 [Calcium 600-Vit D3 800 Tablet] Cyanocobalamin (Vitamin B-12) 1,000 mcg PO DAILY 09/27/13 [Vitamin B-12] DiphenhydrAMINE [Benadryl] 50 mg PO QHS PRN PRN 09/27/13 Fluoxetine [Prozac] 20 mg PO DAILY 09/27/13 Gabapentin [Neurontin] 300 mg PO 4X/DAY 09/27/13 Lisinopril [Zestril] 10 mg PO DAILY 09/27/13 Multivitamin No.44/Vit D3/K 1 each PO DAILY 09/27/13 [Multivitamins Softgels] Pravastatin [Pravachol] 20 mg PO QHS 09/27/13 Triamterene 75MG/Hctz 50MG 1 tablet PO DAILY 09/27/13 [Maxzide] Aspirin [Aspirin, Baby] 81 mg PO QHS 09/28/13 Atenolol 25 mg PO QHS 08/21/16 Oxycodone HCl/Acetaminophen 1 tab PO Q6H 08/21/16 [Oxycodon-Acetaminophen 7.5-325] Iron Poly/Vit C [Niferex-150] 150 mg PO DAILYCM #60 capsule 08/22/16 Pantoprazole Sodium [Protonix] 40 mg PO DAILY #60 tablet 08/22/16 Biotin 5 mg PO DAILY 06/06/18 Lactobacillus Rhamnosus GG 1 each PO DAILY 06/06/18 [Culturelle] Past Medical History (Chronic Problems): Chronic Problems Super obesity (Chronic) Depression (Chronic) Chronic pain (Chronic) back pain History of Prudencio-en-Y gastric bypass (Chronic) Type II diabetes mellitus (Chronic) CAD (coronary artery disease) (Chronic) Hyperlipemia (Chronic) HTN (hypertension) (Chronic) pt denies but, this is listed on an old H&P Surgical History: cholecystectomy, hysterectomy, total knee arthroplasty, - - Breast reduction surgery, gastric bypass, cholecystectomy, 2 knee replacements, right lung nodule resection, mediastinoscopy, carpal tunnel surgery, multiple D&C Psychiatric History: Depression [employer] History: No pertinent [employer] history - *Family History Maternal History Items: Diabetes, - - dementia in her mother Paternal History Items: Heart Disease - father at 46 of a presumed MS Sibling History Items: - - sister with chronic back pain and a borhter with HTN. Another brother has heart issues Lives: Spouse/ Significant Other Smoking Status: Former smoker - quit in 1999 Tobacco Use: Non-smoker Alcohol: Occasional Drugs: None Review of Systems - Review of Systems General: Denies: Fever, Night Sweats, Fatigue Cardiovascular: Reports: Chest Discomfort, Chest Discomfort with Exertion, Chest Pressure, Chest Tightness, Chest Heaviness, Shortness of Breath, Shortness of Breath with Exertion, Peripheral Edema. Denies: Orthopnea, PND, Palpitations, Lightheadedness, Dizziness, Near Syncope, Syncope Respiratory: Denies: Cough, Sputum Production, Hemoptysis Gastrointestinal: Denies: Hematemesis, Hematochezia, Melena Genitourinary: Denies: Dysuria, Hematuria Skin: Denies: Rash Subjectve: Patient resting comfortably, no acute distress. Objective: Vital Signs Temp Pulse Resp BP Pulse Ox 97.7 F L 59 L 16 147/71 H 97 06/07/18 09:40 06/07/18 11:23 06/07/18 09:40 06/07/18 09:40 06/07/18 09:40 Oxygen Flow Rate (L/min) 2 Oxygen Delivery Method Room Air Weight: 281 lb 4.957 oz Body Mass Index (BMI) 48.2 Intake and Output for Last 24 Hours 06/05/18 06/06/18 06/07/18 23:59 23:59 23:59 Intake Total 200 / 200 639.2 / 639.2 Balance 200 / 200 639.2 / 639.2 General: Awake, Alert, Oriented x 3 HEENT: PERRL, EOMI, Sclera Non Icteric Neck: Supple, Good ROM, No Lymph Node Enlargement Lungs: Clear to auscultation Cardiovascular: Regular Rhythm, Normal S1, Normal S2, No Murmurs, No Rubs, No Gallops Vascular: No Carotid Bruits, Normal Femoral Pulses, Normal Radial Pulses, Normal Dorsalis Pedal Pulse, Normal Posterior Tibial Pulses Abdomen: Bowel Sounds Present, Soft, Non Tender, No HSM, No Organomegaly Extremities: No Cyanosis, No Clubbing, No edema Neurological: No Focal Motor or Sensory Deficit 06/06/18 16:45: Troponin I < 0.015 06/07/18 05:00: WBC 5.5, RBC 4.10 L, Hgb 11.5 L, Hct 38.1, MCV 92.9, MCH 28.0, MCHC 30.2 L, RDW 14.7 H, RDW Differential 47.6 H, Plt Count 226, MPV 11.3 06/07/18 05:00: Sodium 140, Potassium 4.2, Chloride 102, Carbon Dioxide 29.0, Anion Gap 9, BUN 13, Creatinine 0.74, Est GFR (MDRD) Af Amer 103, Est GFR (MDRD) Non-Af 85, BUN/Creatinine Ratio 17.7, Glucose 193 H, Calcium 8.3 L, Magnesium 1.6, Total Bilirubin 1.10 H, Triglycerides 191, Cholesterol 138, LDL Cholesterol 64, VLDL Cholesterol 38, HDL Cholesterol 36 L 06/07/18 05:00: PT 13.1, INR 1.0 Rhythm: EKG: ECHO: Stress Test: Cardiac Cath: PCI: CT Surgery: Holter monitor: EPS: PPM: CXR: Chest CT Scan: Assessment/Plan 1. Unstable angina: Patient is a history of coronary disease per the patient with balloon angioplasty only of an unknown vessel presumably at the [facility] around 5 years ago. We do not have any of those reports or Films at this time. Patient reports now with hypertensive urgency, has no troponin release superimpo sed on normal LV function, and normal stress testing. While she was convalescing she has had a 5 beat run of nonsustained self terminating wide- complex tachycardia probably consistent with ventricular tachycardia. Given the patient's constellation of symptoms, I recommended that she undergo a diagnostic coronary angiogram tomorrow morning to determine if she has any coronary artery disease that may explain her symptoms and may benefit from coronary revascularization either percutaneously or with bypass surgery. The risks/benefits of the procedure were thoroughly explained to the patient inc luding specific attention to lack of on-site surgical backup, and the patient is agreed to proceed. She will be loaded with 300 mg of Plavix x1 now followed by 75 mg a day. 2. Hypertension: Patient does not have adequate blood pressure control at this time. I recommended that she switch from lisinopril to Hyzaar 50/12.5 mg p.o. daily and titrate up from there. Her symptoms may be larger related to uncontrolled hypertension. 3. Hyperlipidemia: Her LDL and HDL cholesterol are at goal considering her risk factors. Continue Pravachol. 4. Thank you very much for the opportunity to precipitate in the cardiac care of your patient. Consultation time took place between 230 and 3 PM. All questions answered of the patient and her cousins. Catheterization pending tomorrow morning. Code Visit Inpatient E&M: 75781 Init Hosp L2
[2018-06-07] MEDS: Clopidogrel Bisulfate 300 MG Tablet PO (16:13)
[2018-06-07] MEDS: glipiZIDE 5 MG Tablet PO (16:13)
[2018-06-07] MEDS: Furosemide 40 MG/4 ML Vial IV (16:14)
[2018-06-07] MEDS: 0.9% NaCl Peripheral Flush Adult/Peds IV (16:26)
[2018-06-07 16:55] LABS: Bedside Glucose 179 mg/dL (70-110)
[2018-06-07] MEDS: Pravastatin 20 MG Tablet PO (22:17)
[2018-06-07] MEDS: Aspirin 81 MG TAB.CHEW PO (22:17)
[2018-06-07] MEDS: Atenolol 50 MG Tablet PO (22:18)
[2018-06-07 22:26] LABS: Bedside Glucose 143 mg/dL (70-110)
[2018-06-08] VITALS (16 sets, daily range): BP systolic 100–139; BP diastolic 53–79; PULSE 64–75; RESP 16–19; TEMP 36.3–37.1; O2SAT 94–98
[2018-06-08] MEDS: MELATONIN 3 MG TABLET PO (00:02)
[2018-06-08] MEDS: Acetaminophen 325 MG Tablet 650 MG PO ×3 (00:41→16:24)
[2018-06-08] MEDS: oxyCODONE 5 MG Tablet PO ×3 (00:42→16:24)
[2018-06-08 05:41] LABS: International Normalized Ratio 1.1; Prothrombin Time (Protime)PT. 13.7 SECONDS (11.7-14.9)
[2018-06-08 05:42] LABS: Partial Thromboplast Time 28.3 Seconds (24.1-36.2)
--- NOTE | 2018-06-08 05:55 | EKG12_ITS ---
Test Reason : AM Blood Pressure : / mmHG Vent. Rate : 070 BPM Atrial Rate : 070 BPM P-R Int : 164 ms QRS Dur : 080 ms QT Int : 424 ms P-R-T Axes : 056 052 050 degrees QTc Int : 457 ms Normal sinus rhythm Normal ECG When compared with ECG of 07-JUN-2018 05:19, MANUAL COMPARISON REQUIRED, DATA IS UNCONFIRMED Confirmed by FRANCIS RAMSEY, CONCHA ([id number]), senior editor DEREK ROBB ([id number]) on 06/13/2018 9:02:57 AM Referred By: Jaspreet Vora Confirmed By:CONCHA BLANCO MD
[2018-06-08 06:02] LABS: Anion Gap 13 (5-15); BUN 18 mg/dL (7-18); BUN/Creat Ratio 21.8 RATIO (10-20); Calcium,Total 8.5 mg/dL (8.5-10.1); Chloride 103 mmol/L (98-107); Creatinine, Serum 0.83 mg/dL (0.55-1.02); EST Glomerular Filtration Rate 74 mL/min (>60); Est Glom Filt Rate - Afr Amer 90 mL/min (>60); Estimated Creatinine Clearance 60.69 ml/min; Glucose 178 mg/dL (74-106); Potassium 4.7 mmol/L (3.5-5.1); Sodium Level 137 mmol/L (136-145)
[2018-06-08] MEDS: Clopidogrel Bisulfate 75 MG Tablet PO (06:13)
[2018-06-08] MEDS: Losartan Potassium 50 MG Tablet PO (06:13)
[2018-06-08] MEDS: Aspirin 81 MG TAB.CHEW PO (06:13)
[2018-06-08 06:15] LABS: Absolute Lymphocyte Count 0.72 X10^3/ul (0.83-4.51); Absolute Neutrophil Count 5.1 X10^3/uL (2.0-7.7); Basophil# 0.03 X10^3/uL; Basophil% 0.4 % (0-1); Eosinophil# 0.12 X10^3/uL; Eosinophils% 1.6 % (0-5); Hematocrit 39.5 % (37-47); Hemoglobin 12.4 g/dl (12.0-15.0); Lymphocyte # 0.72 X10^3/ul (4.0); Lymphocyte % 9.7 % (19-41); Mean Corp Hgb Conc 31.4 g/gl (32-36); Mean Corpuscular Hgb 28.4 pg (27.0-32.0); Mean Corpuscular Volume 90.4 fL (81-99); Mean Platelet Vol. 11.2 fl (6.2-12.0); Monocyte% 18.9 % (0-10); Neutrophil # 5.12 X10^3/uL (2.7-7.7); Neutrophil % 69.1 % (47-70); Platelet Count 201 K/mm3 (150-450); RBC Distribution Width CV 14.7 % (11.6-14.6); RBC Distribution Width SD 48.5 fl (35.1-43.9); Red Blood Count 4.37 M/mm3 (4.2-5.4); White Blood Count 7.4 K/mm3 (4.4-11.0)
[2018-06-08 06:20] LABS: POSITIVE COUNT NO; POSITIVE DIFFERENTIAL NO; POSITIVE MORPHOLOGY NO
[2018-06-08 07:00] LABS: Bedside Glucose 178 mg/dL (70-110)
[2018-06-08] MEDS: 0.9% NaCl Peripheral Flush Adult/Peds IV (07:09)
[2018-06-08] MEDS: 0.9% Normal Saline 1,000 ML 15 ML IV (07:09)
[2018-06-08 07:37] LABS: Mucous, Urine 0 SEEN /hpf (<or=2+)
[2018-06-08 07:41] LABS: Color, Urine Yellow (Yellow); Glucose, Dipstick Normal (Normal); Ketone-Dipstick Negative (Negative); Leukocyte Esterase-Dipstick 500 /ul (Negative); Nitrite-Dipstick Negative (Negative); Occult Blood-Urine 10 /ul (Negative); Protein-Dipstick 30 mg/dl (Negative); Specific Gravity, Urine 1.005 (1.002-1.030); Urine Bilirubin Dipstick Negative (Negative); Urine Clarity Cloudy (Clear); Urine Urobilinogen 4 mg/dl (Normal)
[2018-06-08 07:54] LABS: Bacteria 2+ /hpf (None Seen); Red Blood Cells-Urine 0-5 SEEN /hpf (0-5); Squamous Epithelial Cells - UA 0-5 SEEN /hpf (5-10); White Blood Cells 10-25 SEEN /hpf (0-5)
[2018-06-08] MEDS: DiphenhydrAMINE 25 MG Capsule 50 MG PO (08:15)
--- NOTE | 2018-06-08 09:28 | CL.D_ITS ---
Patient Name: MARILYN CHAVEZ Study Date: 06/08/2018 Performing: Mata Vázquez MD Ht: 64.17 inches 163 cm : 1955 Wt: 271.17 lbs 123 kg Age: 63 Gender: female BSA: 2.23 PROCEDURE(S) PERFORMED [id number]/LV CLINICAL PROFILE AND INDICATIONS Indications: New Onset Angina <= 2 months, Stable Known CAD, LV Dysfunction Heart Failure: NYHA Class: 3, Newly Diagnosed: Yes, Heart Failure Type: Systolic Stress/Imaging Stress Test w/SPECT MPI: Yes Result: Positive Low RiskStress Test with SPECT MPI: Positive Low Risk Angina Classification Anginal Classification w/in 2 Weeks: CCS III CAD Presentations: Unstable angina. 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 Change pravachol to lipitor with FLP in 6 weeks. Repeat echo after cardiac rehab. f/u with Dr Vázquez DESCRIPTION OF PROCEDURE The patient arrived to the procedure lab. The risks and benefits of the procedure as well as a full d escription of our services here and current unavailability of surgical backup were fully explained to the patient and/or their significant other prior to the catheterization. The Timeout was completed, verifying the correct patient and procedure. The patient's procedural site was prepped and draped in the usual fashion. Local anesthetic was given subcutaneously to right groin region with Lidocaine 2%. Using a modified Seldinger technique, arterial access was obtained via the right femoral artery, a 4 Fr sheath was inserted Left Coronary Artery selective angiography was performed in multiple views us ing a 4 Fr. JL5 catheter. Right Coronary Artery selective angiography was then performed in multiple views using a 4 Fr. 3DRC catheter. Left Ventriculography was performed in MC projection using a 4 Fr . Pigtail catheter. LV to AO pullback pressures were then recorded.The arterial sheath was pulled and manual compression applied until hemostasis is achieved. CORONARY ANGIOGRAPHY DOMINANCE: Right Dominant LEFT HEART ASSESSMENT Left Ventricular Ejection Fraction: by LV Gram 45 % Inferior Mid Hypokinesis - Moderate. Anterior Hypokinesis - Mild Depressed Left Ventricular systolic function LVEDP: 17 mmHg Elevated Left Ventricular End Diastolic Pressure LEFT MAIN: Angiographically normal LEFT ANTERIOR DECENDING ARTERY: OSTIAL LAD: Mild luminal irregularities less than 30% PROX LAD: Mild luminal irregularities less than 30%, Mild calcification CIRCUMFLEX ARTERY: Mild luminal irregularities less than 30% RIGHT CORONARY ARTERY: Mild luminal irregularities less than 30% COMPLICATIONS No Complications PROCEDURE MEDICATIONS Fentanyl 25 mcg IV Versed 1 mg IV Oxygen: 2 L/min via nasal cannula IV Fluids: .9 NaCl increased to WO ml/hr 06/08/2018 09:05:07 SUMMARY OF HEMODYNAMIC DATA Time AIR REST ECG 08:42:59 AO 111/62 (81) SA 09:04:54 LV 140/-7, 17 09:10:32 LV 131/-9, 19 09:10:38 LVp 132/-10, 19 09:10:43 AOp 134/60 (87) 09:10:48 Signed By Mata Vázquez MD On 06/08/2018 09:27:02 Mata Vázquez MD
[2018-06-08] MEDS: Furosemide 40 MG Tablet PO (10:26)
[2018-06-08] MEDS: hydroCHLOROthiazide 12.5mg 12.5 MG PO (10:26)
[2018-06-08] MEDS: Pantoprazole Sodium 40 MG Tablet PO (10:27)
[2018-06-08] MEDS: Gabapentin 300 MG Capsule PO ×2 (11:04→16:16)
[2018-06-08] MEDS: Magnesium Oxide 400 MG Tablet PO (11:04)
[2018-06-08] MEDS: glipiZIDE 5 MG Tablet PO (11:04)
[2018-06-08] MEDS: Insulin Lispro 100 UNIT/ML INSULN.PEN SC (11:10)
[2018-06-08 11:21] LABS: Bedside Glucose 163 mg/dL (70-110)
--- NOTE | 2018-06-08 15:27 | PCM.DC ---
- Discharge Diagnoses Current Active Problems: Current Active and Chronic Problems (Last Updated 06/08/18 @ 10:06 by Tamia Elizondo) Atherosclerotic heart disease of [place] coronary artery without angina pectoris (Chronic) LEFT MAIN: Angiographically normal; LEFT ANTERIOR DECENDING ARTERY: OSTIAL LAD: Mild luminal irregularities less than 30%; PROX LAD: Mild luminal irregularities less than 30%, Mild calcification ; CIRCUMFLEX ARTERY: Mild luminal irregularities less than 30% ; RIGHT CORONARY ARTERY: Mild luminal irregularities less than 30% History of left heart catheterization (Chronic 06/08/18) LEFT MAIN: Angiographically normal; LEFT ANTERIOR DECENDING ARTERY: OSTIAL LAD: Mild luminal irregularities less than 30% PROX LAD: Mild luminal irregularities less than 30%, Mild calcification CIRCUMFLEX ARTERY: Mild luminal irregularities less than 30%; RIGHT CORONARY ARTERY: Mild luminal irregularities less than 30% Super obesity (Chronic) Chest tightness or pressure (Acute) Diastolic CHF (Acute) Hypertensive emergency (Acute) with acute CHF Depression (Chronic) Chronic pain (Chronic) back pain History of Prudencio-en-Y gastric bypass (Chronic) Former smoker, stopped smoking many years ago (Acute) stopped smoking in 1999 Unstable angina (Acute) Ventricular tachycardia (Acute) You will use the following diet at home:: Calorie/Carbohydrate Controlled (specify 1200, 1400, etc) - 1800 to 2000 calories a day, Cardiac - low fat, low salt, Other - try the paleo diet....you have to stick to it for at least 2 weeks to notice a significant improvement in your fatigue level, carb craving and pain but, It is worth it......I think you will feel better Your food should be the consistency of: Regular Your liquids should be the consistency of: Regular/Thin Discharge Activity: - - work up to walking 30 minutes at a time once daily 5-6 days a week.....this is plenty of exercise. If walking is too hard on your back try a recumbent bike or water aerobics.....water exercise is great for people with chronic back pain because it works the muscles in the arms, legs and abdomen but, the water offloads weight from the spine Return to work on:: 06/15/18 May shower in (days): 1 May resume sexual activity in: 10-14 days Call your doctor if your incision/area has: Continuous Slow Oozing, Sudden Increased Bleeding, Increased Pain/ Swelling, Increased Redness, Foul Smelling Discharge, Swelling at the incision site Call your doctor if you observe: Fever of 101 or Higher, Dizziness, Fainting spells, Increased palpitations (irregular heartbeat), Calf discomfort Remove Dressing in (days):: 1 Cleanse incision/area with: Soap & Water Additional Instructions: The cardiac catheterization showed nonobstructive coronary arteries with no significant coronary artery disease. The heart muscle is not mansi as normally as it should. When he contracts it squeezes 45% of the blood out of the heart and it should be doing 55-65%. This is likely caused by uncontrolled high blood pressure. It is very important to keep your blood pressure controlled or this may worsen. Your blood pressure medications have changed and so please follow the medication list given to you at discharge. I have provided you with prescriptions so that you may shop around for the best baez. Follow-up with Dr. Mckeon in 2 weeks to have your blood pressure checked and to check basic chemistries (BMP). You will need to have a lipid panel and a liver panel Pending Tests on Discharge: none Allergies/Adverse Reactions: Allergies naproxen Adverse Reaction (Verified 06/06/18 10:16) Itching Medications to take at Discharge Calcium Carbonate/Vitamin D3 [Calcium 600-Vit D3 800 Tablet] 1 each PO BID 09/27/13 Cyanocobalamin (Vitamin B-12) [Vitamin B-12] 1,000 mcg PO DAILY 09/27/13 DiphenhydrAMINE [Benadryl] 50 mg PO QHS PRN PRN 09/27/13 Fluoxetine [Prozac] 20 mg PO DAILY 09/27/13 Gabapentin [Neurontin] 300 mg PO 4X/DAY 09/27/13 Multivitamin No.44/Vit D3/K [Multivitamins Softgels] 1 each PO DAILY 09/27/13 Pravastatin [Pravachol] 20 mg PO QHS 09/27/13 Aspirin [Aspirin, Baby] 81 mg PO QHS 09/28/13 Oxycodone HCl/Acetaminophen [Oxycodon-Acetaminophen 7.5-325] 1 tab PO Q6H 08/21/16 Iron Poly/Vit C [Niferex-150] 150 mg PO DAILYCM #60 capsule 08/22/16 Pantoprazole Sodium [Protonix] 40 mg PO DAILY #60 tablet 08/22/16 Biotin 5 mg PO DAILY 06/06/18 Lactobacillus Rhamnosus GG [Culturelle] 1 each PO DAILY 06/06/18 Atenolol [Tenormin (beta shirlene)] 50 mg PO QHS #30 tab 06/08/18 Furosemide [Lasix] 40 mg PO DAILY #30 tab 06/08/18 Losartan Potassium [Cozaar] 50 mg PO DAILY #30 tab 06/08/18 Potassium Chloride [K-Dur] 20 meq PO DAILY #30 tab 06/08/18 glipiZIDE [Glucotrol] 5 mg PO BID #60 tab 06/08/18 The following prescriptions were given: Atenolol [Tenormin (beta shirlnee)] 50 mg PO QHS #30 tab Furosemide [Lasix] 40 mg PO DAILY #30 tab Losartan Potassium [Cozaar] 50 mg PO DAILY #30 tab Potassium Chloride [K-Dur] 20 meq PO DAILY #30 tab glipiZIDE [Glucotrol] 5 mg PO BID #60 tab Primary Care Physician: Jerald Mckeon MD [Primary Care Provider] - Please follow up with your Primary Care Physician in: 1 week for BP check and a BMP Test Results: Test results from this visit will be discussed in further detail at your follow-up appointment, if applicable. Please Follow Up With: Mata Vázquez MD When: 6 weeks Proposed Discharge Date: 06/08/18
--- NOTE | 2018-06-08 15:41 | PCM.DC.SUM ---
Discharge Date and Diagnosis Date of Admission: 06/06/18 Date of Discharge: 06/08/18 - Primary Discharge Diagnosis Active and Suspected Problems (Last Updated 06/08/18 @ 10:06 by Tamia Elizondo) Chest tightness or pressure (Acute) - with no significant CAD on catheterization Diastolic CHF (Acute) Hypertensive emergency (Acute) with acute diastolic CHF Former smoker, stopped smoking many years ago (Acute) stopped smoking in 1999 Non-Sustained ventricular tachycardia (Acute) Cardiomyopathy with a 45% ejection fraction and global hypokinesis-likely related to poorly controlled hypertension - Secondary Discharge Diagnosis Chronic Problems (Last Updated 06/08/18 @ 10:06 by Tamia Elizondo) Atherosclerotic heart disease of [place] coronary artery without angina pectoris (Chronic) LEFT MAIN: Angiographically normal; LEFT ANTERIOR DECENDING ARTERY: OSTIAL LAD: Mild luminal irregularities less than 30%; PROX LAD: Mild luminal irregularities less than 30%, Mild calcification ; CIRCUMFLEX ARTERY: Mild luminal irregularities less than 30% ; RIGHT CORONARY ARTERY: Mild luminal irregularities less than 30% History of left heart catheterization (Chronic 06/08/18) LEFT MAIN: Angiographically normal; LEFT ANTERIOR DECENDING ARTERY: OSTIAL LAD: Mild luminal irregularities less than 30% PROX LAD: Mild luminal irregularities less than 30%, Mild calcification CIRCUMFLEX ARTERY: Mild luminal irregularities less than 30%; RIGHT CORONARY ARTERY: Mild luminal irregularities less than 30% Super obesity (Chronic) Depression (Chronic) Chronic pain (Chronic) back pain History of Prudencio-en-Y gastric bypass (Chronic) Type II diabetes mellitus (Chronic)-uncontrolled Hyperlipemia (Chronic) HTN (hypertension) (Chronic) Hospital Course and Treatment Imaging Results: Clinical Impression(s) from Imaging Studies Chest X-Ray 06/06/18 10:35 IMPRESSION: Vascular congestion and CHF. Electronically Signed: Deonte Palencia MD at 11:03 EST , Service support , Laboratory Results - last 24 hr 06/07/18 06/07/18 06/08/18 16:29 22:14 05:16 WBC RBC Hgb Hct MCV MCH MCHC RDW RDW Differential Plt Count MPV Immature Gran % (Auto) Neut % (Auto) Lymph % (Auto) [place] % (Auto) Eos % (Auto) Baso % (Auto) Absolute Neuts (auto) Absolute Lymphs (auto) Total Counted PT INR APTT Sodium 137 Potassium 4.7 Chloride 103 Carbon Dioxide 21.0 Anion Gap 13 BUN 18 Creatinine 0.83 Estim Creat Clear Calc 60.69 Est GFR (MDRD) Af Amer 90 Est GFR (MDRD) Non-Af 74 BUN/Creatinine Ratio 21.8 H Glucose 178 H Calcium 8.5 Urine Color Urine Clarity Urine pH Ur Specific [place] Urine Protein Urine Glucose (UA) Urine Ketones Urine Occult Blood Urine Nitrite Urine Bilirubin Urine Urobilinogen Ur Leukocyte Esterase Urine RBC Urine WBC Ur Squamous Epith Cells Urine Bacteria Urine Mucus POC Glucose 179 H 143 H 06/08/18 06/08/18 06/08/18 05:16 05:16 05:31 WBC 7.4 RBC 4.37 Hgb 12.4 Hct 39.5 MCV 90.4 MCH 28.4 MCHC 31.4 L RDW 14.7 H RDW Differential 48.5 H Plt Count 201 MPV 11.2 Immature Gran % (Auto) 0.300 Neut % (Auto) 69.1 Lymph % (Auto) 9.7 L Ford % (Auto) 18.9 H Eos % (Auto) 1.6 Baso % (Auto) 0.4 Absolute Neuts (auto) 5.1 Absolute Lymphs (auto) 0.72 L Total Counted Not Reportable PT 13.7 INR 1.1 APTT 28.3 Sodium Potassium Chloride Carbon Dioxide Anion Gap BUN Creatinine Estim Creat Clear Calc Est GFR (MDRD) Af Amer Est GFR (MDRD) Non-Af BUN/Creatinine Ratio Glucose Calcium Urine Color Yellow Urine Clarity Cloudy Urine pH 7.0 Ur Specific [place] 1.005 Urine Protein 30 H Urine Glucose (UA) Normal Urine Ketones Negative Urine Occult Blood 10 H Urine Nitrite Negative Urine Bilirubin Negative Urine Urobilinogen 4 H Ur Leukocyte Esterase 500 H Urine RBC 0-5 SEEN Urine WBC 10-25 SEEN Ur Squamous Epith Cells 0-5 SEEN Urine Bacteria 2+ Urine Mucus 0 SEEN POC Glucose 06/08/18 06/08/18 06:16 11:02 WBC RBC Hgb Hct MCV MCH MCHC RDW RDW Differential Plt Count MPV Immature Gran % (Auto) Neut % (Auto) Lymph % (Auto) Ford % (Auto) Eos % (Auto) Baso % (Auto) Absolute Neuts (auto) Absolute Lymphs (auto) Total Counted PT INR APTT Sodium Potassium Chloride Carbon Dioxide Anion Gap BUN Creatinine Estim Creat Clear Calc Est GFR (MDRD) Af Amer Est GFR (MDRD) Non-Af BUN/Creatinine Ratio Glucose Calcium Urine Color Urine Clarity Urine pH Ur Specific [place] Urine Protein Urine Glucose (UA) Urine Ketones Urine Occult Blood Urine Nitrite Urine Bilirubin Urine Urobilinogen Ur Leukocyte Esterase Urine RBC Urine WBC Ur Squamous Epith Cells Urine Bacteria Urine Mucus POC Glucose [address] Mata Vázquez[facility]/cardiology Operations: None Procedures: 2-D Echocardiogram - The study was technically difficult. Based upon the 2D echocardiographic images obtained there appears to be grossly normal left ventricular size, wall motion, and systolic function. The estimated ejection fraction is 55 %. The mitral valve chordae are thickened and/or calcified. Trivial mitral valve insufficiency. Trivial tricuspid valve insufficiency. Unable to estimate RV systolic pressure/pulmonary artery pressure due to technically difficult study. Diastolic function is indeterminate., Cardiac catheterization - Non obstructive coronary arteries Global LV systolic dysfunction- Moderate Elevated Left Ventricular End Diastolic Pressure LVEF: by LV gram 45 % Summary of Care Provided: The patient is a 63 year old F with a past medical history of depression, chronic back pain, narcotic dependence, superobesity, coronary artery disease (pt denies), hypertension, hyperlipidemia, pulmonary embolism following abdominal surgery, diabetes mellitus type 2 ( no medication for quite a while), Prudencio-en-Y gastric bypass, former smoking history (quit in 1999) who presented to the emergency department at [facility] on 06/06/2018 complaining of dyspnea on exertion, chest heaviness with exertion, edema of her legs and a 12 pound weight gain recently. She ran out of her antihypertensives and diuretics approximately 2 weeks prior to arriving in the ED. She got her prescriptions refilled a few days prior to the ED visit and the edema had improved but the chest pressure and the [place] persisted. Vital signs of presentation to the emergency room were temp 98.1, pulse rate 84, blood pressure 184/101, respiratory rate 26 and she was 95% saturated on room air. White blood cell count was within normal limits. BMP was unremarkable. Troponin was less than 0.015 and the BNP was 41.2. Hemoglobin A1c is uncontrolled at 8.4. Chest x-ray showed increased pulmonary vascular congestion consistent with congestive heart failure. She was treated with intravenous Lasix in the emergency department and IV Vasotec. She was admitted to a monitored bed on PCU and serial cardiac enzymes were obtained which were negative. Echocardiogram showed normal wall motion with a normal ejection fraction of 55%. There was trivial tricuspid regurgitation. A chemical nuclear stress test was performed and was negative for ischemia and showed preserved ejection fraction. She continued to complain of chest pressure and dyspnea on exertion and [facility] was consulted. She underwent cardiac catheterization on 06/08/[address] Mata Vázquez and this revealed a 45% ejection fraction with moderate mid inferior wall hypokinesis and mild anterior hypokinesis. There were mild luminal irregularities in the ostial LAD that were less than 30% and mild luminal irregularities in the proximal LAD less than 30%. Additionally there were mild luminal irregularities in the circumflex and right coronary artery which were also less than 30%. She was started on losartan and daily Lasix 40 mg. She has a history of diabetes mellitus and has not been checking her sugars. She is on no medication at admission for diabetes mellitus. Hemoglobin A1c was 8.4% and she was started on Glucotrol 5 mg p.o. twice daily. She was seen by the adaptive physical educator for education and recommendations on diet changes were given. She was instructed to follow up with Dr. Mckeon in 1 week to have the BP and a BMP checked. She will follow up with Dr. Vzáquez in 6 weeks. GENERAL: alert, oriented X 3, Cooperative, looks apprehensive ORAL: moist mucosa, no mucosal lesions NECK: No JVD, supple, trachea midline LUNGS: CTA but diminished, symmetric chest expansion no conversational dyspnea, not tachypneic at rest, no accessory muscle use HEART: RRR, Normal S1 and S2, no rub, no gallop, no murmur ABDOMEN: soft, NT, ND, BS present, no guarding with palpation EXTREMITIES: no edema, no cyanosis, no calf tenderness SKIN: No rashes, no breakdown NEUROLOGIC: no focal neurologic deficits PSYCH: appropriate, normal affect, pleasant This note was generated with [employer] software. It may contain incorrect words, spelling, and punctuation that were not noted in checking the note before signing. - Physical Exam Vital Signs Temp Pulse Resp BP Pulse Ox 98.3 F 73 18 100/53 L 95 06/08/18 13:50 06/08/18 15:17 06/08/18 13:50 06/08/18 13:50 06/08/18 13:50 Oxygen Flow Rate (L/min) 2 Oxygen Delivery Method Room Air Weight: 271 lb 6.224 oz Body Mass Index (BMI) 48.2 Intake and Output for Last 24 Hours 06/06/18 06/07/18 06/08/18 23:59 23:59 23:59 Intake Total 200 / 200 1209.2 / 1209.2 597.1 / 597.1 Output Total 2400 / 2400 800 / 800 Balance 200 / 200 -1190.8 / -1190.8 -202.9 / -202.9 Laboratory Tests Past 24 Hrs 06/08/18 06/08/18 06/08/18 05:16 05:16 05:16 WBC 7.4 RBC 4.37 Hgb 12.4 Hct 39.5 MCV 90.4 MCH 28.4 MCHC 31.4 L RDW 14.7 H RDW Differential 48.5 H Plt Count 201 MPV 11.2 Immature Gran % (Auto) 0.300 Neut % (Auto) 69.1 Lymph % (Auto) 9.7 L [place] % (Auto) 18.9 H Eos % (Auto) 1.6 Baso % (Auto) 0.4 Absolute Neuts (auto) 5.1 Absolute Lymphs (auto) 0.72 L Total Counted Not Reportable PT 13.7 INR 1.1 APTT 28.3 Sodium 137 Potassium 4.7 Chloride 103 Carbon Dioxide 21.0 Anion Gap 13 BUN 18 Creatinine 0.83 Estim Creat Clear Calc 60.69 Est GFR (MDRD) Af Amer 90 Est GFR (MDRD) Non-Af 74 BUN/Creatinine Ratio 21.8 H Glucose 178 H Calcium 8.5 Urine Color Urine Clarity Urine pH Ur Specific [place] Urine Protein Urine Glucose (UA) Urine Ketones Urine Occult Blood Urine Nitrite Urine Bilirubin Urine Urobilinogen Ur Leukocyte Esterase Urine RBC Urine WBC Ur Squamous Epith Cells Urine Bacteria Urine Mucus 06/08/18 05:31 WBC RBC Hgb Hct MCV MCH MCHC RDW RDW Differential Plt Count MPV Immature Gran % (Auto) Neut % (Auto) Lymph % (Auto) [place] % (Auto) Eos % (Auto) Baso % (Auto) Absolute Neuts (auto) Absolute Lymphs (auto) Total Counted PT INR APTT Sodium Potassium Chloride Carbon Dioxide Anion Gap BUN Creatinine Estim Creat Clear Calc Est GFR (MDRD) Af Amer Est GFR (MDRD) Non-Af BUN/Creatinine Ratio Glucose Calcium Urine Color Yellow Urine Clarity Cloudy Urine pH 7.0 Ur Specific [place] 1.005 Urine Protein 30 H Urine Glucose (UA) Normal Urine Ketones Negative Urine Occult Blood 10 H Urine Nitrite Negative Urine Bilirubin Negative Urine Urobilinogen 4 H Ur Leukocyte Esterase 500 H Urine RBC 0-5 SEEN Urine WBC 10-25 SEEN Ur Squamous Epith Cells 0-5 SEEN Urine Bacteria 2+ Urine Mucus 0 SEEN POC Glucose 06/08/18 06/08/18 06/07/18 11:02 06:16 22:14 POC Glucose 163 H 178 H 143 H 06/07/18 16:29 POC Glucose 179 H Discharge Activity: - - work up to walking 30 minutes at a time once daily 5-6 days a week.....this is plenty of exercise. If walking is too hard on your back try a recumbent bike or water aerobics.....water exercise is great for people with chronic back pain because it works the muscles in the arms, legs and abdomen but, the water offloads weight from the spine Return to work on:: 06/15/18 May shower in (days): 1 May resume sexual activity in: 10-14 days Call your doctor if your incision/area has: Continuous Slow Oozing, Sudden Increased Bleeding, Increased Pain/ Swelling, Increased Redness, Foul Smelling Discharge, Swelling at the incision site Call your doctor if you observe: Fever of 101 or Higher, Dizziness, Fainting spells, Increased palpitations (irregular heartbeat), Calf discomfort Remove Dressing in (days):: 1 Cleanse incision/area with: Soap & Water Home Medications: Medications to take at Discharge RX: Calcium Carbonate/Vitamin D3 [Calcium 600-Vit D3 800 Tablet] 1 each PO BID 09/27/13 RX: Cyanocobalamin (Vitamin B-12) [Vitamin B-12] 1,000 mcg PO DAILY 09/27/13 RX: DiphenhydrAMINE [Benadryl] 50 mg PO QHS PRN PRN 09/27/13 RX: Fluoxetine [Prozac] 20 mg PO DAILY 09/27/13 RX: Gabapentin [Neurontin] 300 mg PO 4X/DAY 09/27/13 RX: Multivitamin No.44/Vit D3/K [Multivitamins Softgels] 1 each PO DAILY 09/27/13 RX: Pravastatin [Pravachol] 20 mg PO QHS 09/27/13 RX: Aspirin [Aspirin, Baby] 81 mg PO QHS 09/28/13 RX: Oxycodone HCl/Acetaminophen [Oxycodon-Acetaminophen 7.5-325] 1 tab PO Q6H 08/21/16 RX: Iron Poly/Vit C [Niferex-150] 150 mg PO DAILYCM #60 capsule 08/22/16 RX: Pantoprazole Sodium [Protonix] 40 mg PO DAILY #60 tablet 08/22/16 RX: Biotin 5 mg PO DAILY 06/06/18 RX: Lactobacillus Rhamnosus GG [Culturelle] 1 each PO DAILY 06/06/18 RX: Atenolol [Tenormin (beta shirlene)] 50 mg PO QHS #30 tab 06/08/18 RX: Furosemide [Lasix] 40 mg PO DAILY #30 tab 06/08/18 RX: Losartan Potassium [Cozaar] 50 mg PO DAILY #30 tab 06/08/18 RX: Potassium Chloride [K-Dur] 20 meq PO DAILY #30 tab 06/08/18 RX: glipiZIDE [Glucotrol] 5 mg PO BID #60 tab 06/08/18 Following Prescrptions Were Given to Patient: RX: Atenolol [Tenormin (beta shirlene)] 50 mg PO QHS #30 tab RX: Furosemide [Lasix] 40 mg PO DAILY #30 tab RX: Losartan Potassium [Cozaar] 50 mg PO DAILY #30 tab RX: Potassium Chloride [K-Dur] 20 meq PO DAILY #30 tab RX: glipiZIDE [Glucotrol] 5 mg PO BID #60 tab Primary Care Physician: Jerald Mckeon MD [Primary Care Provider] - Please follow up with your Primary Care Physician in: 1 week for BP check and a BMP Please Follow Up With: Mata Vázquez MD When: 6 weeks Disposition: Home Minutes spent on discharge:: 30 Patient Condition:: Good Medical Necessity - Tobacco Use Smoking Status: Former smoker - quit in 1999 Tobacco Use: Non-smoker Meaningful Use Info Meaningful Use Diagnoses (Choose all that apply): None applicable Code Visit OBSV E&M: 20248 Observation care discharge
--- NOTE | 2018-06-08 15:45 | DS.PCM_ITS ---
Discharge Date and Diagnosis Date of Admission: 06/06/18 Date of Discharge: 06/08/18 - Primary Discharge Diagnosis Active and Suspected Problems (Last Updated 06/08/18 @ 10:06 by Tamia Elizondo) Chest tightness or pressure (Acute) - with no significant CAD on catheterization Diastolic CHF (Acute) Hypertensive emergency (Acute) with acute diastolic CHF Former smoker, stopped smoking many years ago (Acute) stopped smoking in 1999 Non-Sustained ventricular tachycardia (Acute) Cardiomyopathy with a 45% ejection fraction and global hypokinesis-likely related to poorly controlled hypertension - Secondary Discharge Diagnosis Chronic Problems (Last Updated 06/08/18 @ 10:06 by Tamia Elizondo) Atherosclerotic heart disease of [place] coronary artery without angina pectoris (Chronic) LEFT MAIN: Angiographically normal; LEFT ANTERIOR DECENDING ARTERY: OSTIAL LAD: Mild luminal irregularities less than 30%; PROX LAD: Mild luminal irregularities less than 30%, Mild calcification ; CIRCUMFLEX ARTERY: Mild luminal irregularities less than 30% ; RIGHT CORONARY ARTERY: Mild luminal irregularities less than 30% History of left heart catheterization (Chronic 06/08/18) LEFT MAIN: Angiographically normal; LEFT ANTERIOR DECENDING ARTERY: OSTIAL LAD: Mild luminal irregularities less than 30% PROX LAD: Mild luminal irregularities less than 30%, Mild calcification CIRCUMFLEX ARTERY: Mild luminal irregularities less than 30%; RIGHT CORONARY ARTERY: Mild luminal irregularities less than 30% Super obesity (Chronic) Depression (Chronic) Chronic pain (Chronic) back pain History of Prudencio-en-Y gastric bypass (Chronic) Type II diabetes mellitus (Chronic)-uncontrolled Hyperlipemia (Chronic) HTN (hypertension) (Chronic) Hospital Course and Treatment Imaging Results: Clinical Impression(s) from Imaging Studies Chest X-Ray 06/06/18 10:35 IMPRESSION: Vascular congestion and CHF. Electronically Signed: Deonte Palencia MD at 11:03 EST , Service support , Laboratory Results - last 24 hr 06/07/18 06/07/18 06/08/18 16:29 22:14 05:16 WBC RBC Hgb Hct MCV MCH MCHC RDW RDW Differential Plt Count MPV Immature Gran % (Auto) Neut % (Auto) Lymph % (Auto) [place] % (Auto) Eos % (Auto) Baso % (Auto) Absolute Neuts (auto) Absolute Lymphs (auto) Total Counted PT INR APTT Sodium 137 Potassium 4.7 Chloride 103 Carbon Dioxide 21.0 Anion Gap 13 BUN 18 Creatinine 0.83 Estim Creat Clear Calc 60.69 Est GFR (MDRD) Af Amer 90 Est GFR (MDRD) Non-Af 74 BUN/Creatinine Ratio 21.8 H Glucose 178 H Calcium 8.5 Urine Color Urine Clarity Urine pH Ur Specific [place] Urine Protein Urine Glucose (UA) Urine Ketones Urine Occult Blood Urine Nitrite Urine Bilirubin Urine Urobilinogen Ur Leukocyte Esterase Urine RBC Urine WBC Ur Squamous Epith Cells Urine Bacteria Urine Mucus POC Glucose 179 H 143 H 06/08/18 06/08/18 06/08/18 05:16 05:16 05:31 WBC 7.4 RBC 4.37 Hgb 12.4 Hct 39.5 MCV 90.4 MCH 28.4 MCHC 31.4 L RDW 14.7 H RDW Differential 48.5 H Plt Count 201 MPV 11.2 Immature Gran % (Auto) 0.300 Neut % (Auto) 69.1 Lymph % (Auto) 9.7 L [place] % (Auto) 18.9 H Eos % (Auto) 1.6 Baso % (Auto) 0.4 Absolute Neuts (auto) 5.1 Absolute Lymphs (auto) 0.72 L Total Counted Not Reportable PT 13.7 INR 1.1 APTT 28.3 Sodium Potassium Chloride Carbon Dioxide Anion Gap BUN Creatinine Estim Creat Clear Calc Est GFR (MDRD) Af Amer Est GFR (MDRD) Non-Af BUN/Creatinine Ratio Glucose Calcium Urine Color Yellow Urine Clarity Cloudy Urine pH 7.0 Ur Specific [place] 1.005 Urine Protein 30 H Urine Glucose (UA) Normal Urine Ketones Negative Urine Occult Blood 10 H Urine Nitrite Negative Urine Bilirubin Negative Urine Urobilinogen 4 H Ur Leukocyte Esterase 500 H Urine RBC 0-5 SEEN Urine WBC 10-25 SEEN Ur Squamous Epith Cells 0-5 SEEN Urine Bacteria 2+ Urine Mucus 0 SEEN POC Glucose 06/08/18 06/08/18 06:16 11:02 WBC RBC Hgb Hct MCV MCH MCHC RDW RDW Differential Plt Count MPV Immature Gran % (Auto) Neut % (Auto) Lymph % (Auto) [place] % (Auto) Eos % (Auto) Baso % (Auto) Absolute Neuts (auto) Absolute Lymphs (auto) Total Counted PT INR APTT Sodium Potassium Chloride Carbon Dioxide Anion Gap BUN Creatinine Estim Creat Clear Calc Est GFR (MDRD) Af Amer Est GFR (MDRD) Non-Af BUN/Creatinine Ratio Glucose Calcium Urine Color Urine Clarity Urine pH Ur Specific [place] Urine Protein Urine Glucose (UA) Urine Ketones Urine Occult Blood Urine Nitrite Urine Bilirubin Urine Urobilinogen Ur Leukocyte Esterase Urine RBC Urine WBC Ur Squamous Epith Cells Urine Bacteria Urine Mucus POC Glucose [address] Mata Vázquez[facility]/cardiology Operations: None Procedures: 2-D Echocardiogram - The study was technically difficult. Based upon the 2D echocardiographic images obtained there appears to be grossly normal left ventricular size, wall motion, and systolic function. The estimated ejection fraction is 55 %. The mitral valve chordae are thickened and/or calcif ied. Trivial mitral valve insufficiency. Trivial tricuspid valve insufficiency. Unable to estimate RV systolic pressure/pulmonary artery pressure due to technically difficult study. Diastolic function is indeterminate., Cardiac catheterization - Non obstructive coronary arteries Global LV systolic dysfunction- Moderate Elevated Left Ventricular End Diastolic Pressure LVEF: by LV gram 45 % Summary of Care Provided: The patient is a 63 year old F with a past medical history of depression, chronic back pain, narcotic dependence, superobesity, coronary artery disease (pt denies), hypertension, hyperlipidemia, pulmonary embolism following abdominal surgery, diabetes mellitus type 2 ( no medication for quite a while), Prudencio-en-Y gastric bypass, former smoking history (quit in 1999) who presented to the emergency department at [facility] on 06/06/2018 complaining of dyspnea on exertion, chest heaviness with exertion, edema of her legs and a 12 pound weight gain recently. She ran out of her antihypertensives and diuretics approximately 2 weeks prior to arriving in the ED. She got her prescriptions refilled a few days prior to the ED visit and the edema had improved but the chest pressure and the [place] persisted. Vital signs of presentation to the emergency room were temp 98.1, pulse rate 84, blood pressure 184/101, respiratory rate 26 and she was 95% saturated on room air. White blood cell count was within normal limits. BMP was unremarkable. Troponin was less than 0.015 and the BNP was 41.2. Hemoglobin A1c is uncontrolled at 8.4. Chest x-ray showed increased pulmonary vascular congestion consistent with congestive heart failure. She was treated with intravenous Lasix in the emergency d epartment and IV Vasotec. She was admitted to a monitored bed on PCU and serial cardiac enzymes were obtained which were negative. Echocardiogram showed normal wall motion with a normal ejection fraction of 55%. There was trivial tricuspid regurgitation. A chemical nuclear stress test was performed and was negative for ischemia and showed preserved ejection fraction. She continued to complain of chest pressure and dyspnea on exertion and [facility] was consulted. She underwent cardiac catheterization on 06/08/[address] Mata Vázquez and this revealed a 45% ejection fraction with moderate mid inferior wall hypokinesis and mild anterior hypokinesis. There were mild luminal irregularities in the ostial LAD that were less than 30% and mild luminal irregularities in the proximal LAD less than 30%. Additionally there were mild luminal irregularities in the circumflex and right coronary artery which were also less than 30%. She was started on losartan and daily Lasix 40 mg. She has a history of diabetes mellitus and has not been checking her sugars. She is on no medication at admission for diabetes mellitus. Hemoglobin A1c was 8.4% and she was started on Glucotrol 5 mg p.o. twice daily. She was seen by the sewage plant operator for education and recommendations on diet changes were given. She was instructed to follow up with Dr. Mckeon in 1 week to have the BP and a BMP checked. She will follow up with Dr. Vázquez in 6 weeks. GENERAL: alert, oriented X 3, Cooperative, looks apprehensive ORAL: moist mucosa, no mucosal lesions NECK: No JVD, supple, trachea midline LUNGS: CTA but diminished, symmetric chest expansion no conversational dyspnea, not tachypneic at rest, no accessory muscle use HEART: RRR, Normal S1 and S2, no rub, no gallop, no murmur ABDOMEN: soft, NT, ND, BS present, no guarding with palpation EXTREMITIES: no edema, no cyanosis, no calf tenderness SKIN: No rashes, no breakdown NEUROLOGIC: no focal neurologic deficits PSYCH: appropriate, normal affect, pleasant This note was generated with [employer] software. It may contain incorrect words, spelling, and punctuation that were not noted in checking the note before signing. - Physical Exam Vital Signs Temp Pulse Resp BP Pulse Ox 98.3 F 73 18 100/53 L 95 06/08/18 13:50 06/08/18 15:17 06/08/18 13:50 06/08/18 13:50 06/08/18 13:50 Oxygen Flow Rate (L/min) 2 Oxygen Delivery Method Room Air Weight: 271 lb 6.224 oz Body Mass Index (BMI) 48.2 Intake and Output for Last 24 Hours 06/06/18 06/07/18 06/08/18 23:59 23:59 23:59 Intake Total 200 / 200 1209.2 / 1209.2 597.1 / 597.1 Output Total 2400 / 2400 800 / 800 Balance 200 / 200 -1190.8 / -1190.8 -202.9 / -202.9 Laboratory Tests Past 24 Hrs 06/08/18 06/08/18 06/08/18 05:16 05:16 05:16 WBC 7.4 RBC 4.37 Hgb 12.4 Hct 39.5 MCV 90.4 MCH 28.4 MCHC 31.4 L RDW 14.7 H RDW Differential 48.5 H Plt Count 201 MPV 11.2 Immature Gran % (Auto) 0.300 Neut % (Auto) 69.1 Lymph % (Auto) 9.7 L [place] % (Auto) 18.9 H Eos % (Auto) 1.6 Baso % (Auto) 0.4 Absolute Neuts (auto) 5.1 Absolute Lymphs (auto) 0.72 L Total Counted Not Reportable PT 13.7 INR 1.1 APTT 28.3 Sodium 137 Potassium 4.7 Chloride 103 Carbon Dioxide 21.0 Anion Gap 13 BUN 18 Creatinine 0.83 Estim Creat Clear Calc 60.69 Est GFR (MDRD) Af Amer 90 Est GFR (MDRD) Non-Af 74 BUN/Creatinine Ratio 21.8 H Glucose 178 H Calcium 8.5 Urine Color Urine Clarity Urine pH Ur Specific [place] Urine Protein Urine Glucose (UA) Urine Ketones Urine Occult Blood Urine Nitrite Urine Bilirubin Urine Urobilinogen Ur Leukocyte Esterase Urine RBC Urine WBC Ur Squamous Epith Cells Urine Bacteria Urine Mucus 06/08/18 05:31 WBC RBC Hgb Hct MCV MCH MCHC RDW RDW Differential Plt Count MPV Immature Gran % (Auto) Neut % (Auto) Lymph % (Auto) [place] % (Auto) Eos % (Auto) Baso % (Auto) Absolute Neuts (auto) Absolute Lymphs (auto) Total Counted PT INR APTT Sodium Potassium Chloride Carbon Dioxide Anion Gap BUN Creatinine Estim Creat Clear Calc Est GFR (MDRD) Af Amer Est GFR (MDRD) Non-Af BUN/Creatinine Ratio Glucose Calcium Urine Color Yellow Urine Clarity Cloudy Urine pH 7.0 Ur Specific [place] 1.005 Urine Protein 30 H Urine Glucose (UA) Normal Urine Ketones Negative Urine Occult Blood 10 H Urine Nitrite Negative Urine Bilirubin Negative Urine Urobilinogen 4 H Ur Leukocyte Esterase 500 H Urine RBC 0-5 SEEN Urine WBC 10-25 SEEN Ur Squamous Epith Cells 0-5 SEEN Urine Bacteria 2+ Urine Mucus 0 SEEN POC Glucose 06/08/18 06/08/18 06/07/18 11:02 06:16 22:14 POC Glucose 163 H 178 H 143 H 06/07/18 16:29 POC Glucose 179 H Discharge Activity: - - work up to walking 30 minutes at a time once daily 5-6 days a week.....this is plenty of exercise. If walking is too hard on your back try a recumbent bike or water aerobics.....water exercise is great for people with chronic back pain because it works the muscles in the arms, legs and abdomen but, the water offloads weight from the spine Return to work on:: 06/15/18 May shower in (days): 1 May resume sexual activity in: 10-14 days Call your doctor if your incision/area has: Continuous Slow Oozing, Sudden Increased Bleeding, Increased Pain/ Swelling, Increased Redness, Foul Smelling Discharge, Swelling at the incision site Call your doctor if you observe: Fever of 101 or Higher, Dizziness, Fainting spells, Increased palpitations (irregular heartbeat), Calf discomfort Remove Dressing in (days):: 1 Cleanse incision/area with: Soap & Water Home Medications: Medications to take at Discharge RX: Calcium Carbonate/Vitamin D3 [Calcium 600-Vit D3 800 Tablet] 1 each PO BID 09/27/13 RX: Cyanocobalamin (Vitamin B-12) [Vitamin B-12] 1,000 mcg PO DAILY 09/27/13 RX: DiphenhydrAMINE [Benadryl] 50 mg PO QHS PRN PRN 09/27/13 RX: Fluoxetine [Prozac] 20 mg PO DAILY 09/27/13 RX: Gabapentin [Neurontin] 300 mg PO 4X/DAY 09/27/13 RX: Multivitamin No.44/Vit D3/K [Multivitamins Softgels] 1 each PO DAILY 09/27/13 RX: Pravastatin [Pravachol] 20 mg PO QHS 09/27/13 RX: Aspirin [Aspirin, Baby] 81 mg PO QHS 09/28/13 RX: Oxycodone HCl/Acetaminophen [Oxycodon-Acetaminophen 7.5-325] 1 tab PO Q6H 08/21/16 RX: Iron Poly/Vit C [Niferex-150] 150 mg PO DAILYCM #60 capsule 08/22/16 RX: Pantoprazole Sodium [Protonix] 40 mg PO DAILY #60 tablet 08/22/16 RX: Biotin 5 mg PO DAILY 06/06/18 RX: Lactobacillus Rhamnosus GG [Culturelle] 1 each PO DAILY 06/06/18 RX: Atenolol [Tenormin (beta shirlene)] 50 mg PO QHS #30 tab 06/08/18 RX: Furosemide [Lasix] 40 mg PO DAILY #30 tab 06/08/18 RX: Losartan Potassium [Cozaar] 50 mg PO DAILY #30 tab 06/08/18 RX: Potassium Chloride [K-Dur] 20 meq PO DAILY #30 tab 06/08/18 RX: glipiZIDE [Glucotrol] 5 mg PO BID #60 tab 06/08/18 Following Prescrptions Were Given to Patient: RX: Atenolol [Tenormin (beta shirlene)] 50 mg PO QHS #30 tab RX: Furosemide [Lasix] 40 mg PO DAILY #30 tab RX: Losartan Potassium [Cozaar] 50 mg PO DAILY #30 tab RX: Potassium Chloride [K-Dur] 20 meq PO DAILY #30 tab RX: glipiZIDE [Glucotrol] 5 mg PO BID #60 tab Primary Care Physician: Jerald Mckeon MD [Primary Care Provider] - Please follow up with your Primary Care Physician in: 1 week for BP check and a BMP Please Follow Up With: Mata Vázquez MD When: 6 weeks Disposition: Home Minutes spent on discharge:: 30 Patient Condition:: Good Medical Necessity - Tobacco Use Smoking Status: Former smoker - quit in 1999 Tobacco Use: Non-smoker Meaningful Use Info Meaningful Use Diagnoses (Choose all that apply): None applicable Code Visit OBSV E&M: 31371 Observation care discharge
[2018-06-08 16:30] LABS: Bedside Glucose 190 mg/dL (70-110)
[2018-06-08] MEDS: Atenolol 50 MG Tablet PO (16:59)
== END 2018-06-08 17:09 | disposition home or self-care (01) | DRG 286 ==
LOC: ED 11:07 → PCU 11:52
PROVIDERS: Internal Medicine Cardiovascular Disease; Admitting Provider Internal Medicine; Emergency Provider Emergency Medicine; Family Provider Family Medicine; PCP Family Medicine; Referring Provider Internal Medicine; Visit Provider Internal Medicine
DX: I11.0 Hypertensive heart disease with heart failure (principal); I50.31 Acute diastolic (congestive) heart failure; I16.1 Hypertensive emergency; Z68.42 Body mass index [BMI] 45.0-49.9, adult; I47.2 Ventricular tachycardia; F11.20 Opioid dependence, uncomplicated; I42.9 Cardiomyopathy, unspecified; E78.5 Hyperlipidemia, unspecified; E66.01 Morbid (severe) obesity due to excess calories; E11.65 Type 2 diabetes mellitus with hyperglycemia; R07.89 Other chest pain; Z87.891 Personal history of nicotine dependence; G89.29 Other chronic pain; M54.9 Dorsalgia, unspecified; Z91.14 Patient's other noncompliance with medication regimen; Z98.84 Bariatric surgery status; F32.9 Major depressive disorder, single episode, unspecified; Z86.711 Personal history of pulmonary embolism; Z86.718 Personal history of other venous thrombosis and embolism; Z23 Encounter for immunization
CPT/HCPCS: 36415; 71045; 78452; 80048; 80053; 80061; 81001; 82962; 83036; 83735; 83880; 84443; 84484; 85025; 85027; 85610; 85730; 93005; 93017; 93306; 93458; 94762; 97802; 99152; 99283; A9500; J7030; J7040; Q9957; Q9967; 90686; A4216; C1769; C1894; J1940; J2785

== ENCOUNTER → 2019-01-17 13:29 | Outpatient (CLI) | payer OTHER, SELFPAY ==
[2018-06-06 12:22] VITALS: BMI 48.2
--- NOTE | 2019-01-17 13:33 | RAD_ITS ---
STUDY: X-RAY - PELVIS AND LEFT HIP REASON FOR EXAM: Hip pain without injury. TECHNIQUE: 2 views of the pelvis and hip. COMPARISON: Radiographs 06/21/2017. FINDINGS: There are pelvic phleboliths. There is mild vascular calcification. There are degenerative changes of the lumbar spine. Normal bilateral iliac wings, sacroiliac joints and visualized sacrum. Normal bilateral superior and inferior pubic rami. Normal pubic symphysis. Normal bilateral ischial tuberosities. Normal visualized femoral head. There is a small left os acetabula. Normal hip joint. RAD/HIP, UNI W/ Pelvis 2-3 Views IMPRESSION: Small left os acetabula. Otherwise, unremarkable x-ray examination of the pelvis and left hip. Electronically Signed: Jayson Sparrow MD at 14:02 EDT Tel , Service support ,
== END ==
PROVIDERS: Family Provider Physician Assistant; PCP Physician Assistant; Referring Provider Anesthesiology Pain Medicine; Visit Provider Anesthesiology Pain Medicine
DX: M25.552 Pain in left hip (principal)
CPT/HCPCS: 73502

== ENCOUNTER → 2019-03-20 09:57 | Outpatient (CLI) | payer OTHER, SELFPAY ==
[2019-03-20 09:34] VITALS: BMI 48.2
--- NOTE | 2019-03-20 10:20 | RAD_ITS ---
STUDY: X-RAY - LUMBOSACRAL SPINE REASON FOR EXAM: Female, 64 years old. Back pain. TECHNIQUE: 6 view(s) of the lumbosacral spine including lateral flexion and extension views were obtained. COMPARISON: Lumbar spine MRI dated January 11, 2017. FINDINGS: Generalized osteopenia. Normal lumbar lordosis. Minimal rotatory levoscoliosis. There is normal alignment of the vertebrae. Normal vertebral bodies and endplates. Intervertebral disc space narrowing most marked at L3-4, L4-5 and L5-S1 with osteophyte formation. Diffuse facet sclerosis. Normal bilateral sacral ala, sacroiliac joints, and visualized sacrum. Marked vascular calcification. Cholecystectomy clips. RAD/L/S Spine w Bend Min 6 Vw IMPRESSION: Osteopenia with moderate lower lumbar spondylosis as described. No acute finding. Electronically Signed: Elijah Adair MD at 10:52 EST , Service support ,
== END ==
LOC: HPRAD 09:57
PROVIDERS: Family Provider Physician Assistant; PCP Physician Assistant; Referring Provider Orthopaedic Surgery; Visit Provider Orthopaedic Surgery
DX: M54.5 Low back pain (principal)
CPT/HCPCS: 72114

== ENCOUNTER → 2019-04-11 17:54 | Outpatient (CLI) | payer OTHER, SELFPAY ==
[2019-03-20 09:34] VITALS: BMI 48.2
--- NOTE | 2019-04-11 17:55 | MRI_ITS ---
STUDY: MRI LUMBAR SPINE WITHOUT CONTRAST REASON FOR EXAM: Female, 64 years old. Severe low back and left leg pain. Fall 04/05/2019. TECHNIQUE: Standardized fat and water weighted pulse sequences were obtained in the sagittal and axial planes. COMPARISON: X-ray 03/20/2019. FINDINGS: T12-L1: Normal endplates. Normal disc height, hydration and morphology. Normal bilateral facet joints. Normal central canal and bilateral lateral recesses. Normal bilateral intervertebral neural foramina. There is straightening of the normal lumbar lordosis. There is no substantial scoliosis. Normal conus medullaris that terminates at the L1 level. L1-2: Normal endplates. Normal disc height, hydration and morphology. Normal bilateral facet joints. Normal central canal and bilateral lateral recesses. Normal bilateral intervertebral neural foramina. L2-3: Normal endplates. Normal disc height, hydration and morphology. Normal bilateral facet joints. Normal central canal and bilateral lateral recesses. Normal bilateral intervertebral neural foramina. L3-4: Normal endplates. Marked disc space narrowing. Moderate concentric canal stenosis due to shortened pedicles, spondylotic bar, and moderate facet hypertrophy. Moderate right foraminal stenosis due to spurring and mild facet hypertrophy. L4-5: Normal endplates. Disc dehydration. Small left paracentral disc protrusion extending into the inferior left neural foramen. There is mild canal stenosis and effacement of the left lateral recess due to disc protrusion and mild facet hypertrophy. There is moderate left foraminal stenosis due to spurring. L5-S1: Normal endplates. Marked disc space narrowing. Mild spondylotic bar, greater on the left. Moderate left foraminal stenosis due to spurring. Right neural foramen is patent. Normal facet joints. Normal visualized sacral ala. Normal visualized paraspinous soft tissue structures. MRI/Spine Lumbar (Routine) IMPRESSION: 1. L3-4 canal stenosis. 2. Small L4-5 disc protrusion causing mild canal stenosis and effacement of the left lateral recess. 3. Moderate foraminal stenosis from L3-4 through L5-S1. Additional degenerative changes are noted above. Electronically Signed: Chaparrita Galvan MD at 22:42 EST Tel , Service support ,
== END ==
LOC: MRI 17:54
PROVIDERS: Family Provider Physician Assistant; PCP Physician Assistant; Referring Provider Orthopaedic Surgery; Visit Provider Orthopaedic Surgery
DX: M54.5 Low back pain (principal); M79.605 Pain in left leg; M51.36 Other intervertebral disc degeneration, lumbar region
CPT/HCPCS: 72148

== ENCOUNTER → 2020-01-17 12:24 | Outpatient (CLI) | payer OTHER, SELFPAY ==
[2019-04-19 14:34] VITALS: BMI 48.2
[2020-01-17 14:59] LABS: Amphetamine Urine VISTA NEGATIVE (<1000 ng/mL); Barbiturate Urine VISTA NEGATIVE (< 200 ng/mL); Benzodiazepine Urine VISTA NEGATIVE (< 200 ng/mL); Cocaine Urine VISTA NEGATIVE (< 300 ng/mL); Ecstacy Urine VISTA NEGATIVE (< 500 ng/mL); Methadone Urine VISTA NEGATIVE (< 300 ng/mL); PCP Urine VISTA NEGATIVE (< 25 ng/mL); THC Urine VISTA NEGATIVE (< 50 ng/mL); Vista UDS pH Range 6
== END ==
LOC: LAB 12:27
PROVIDERS: PCP Physician Assistant; Referring Provider Anesthesiology Pain Medicine; Visit Provider Anesthesiology Pain Medicine
DX: F11.20 Opioid dependence, uncomplicated (principal)
CPT/HCPCS: 80307

== ENCOUNTER → 2020-04-18 12:10 | Outpatient (CLI) | payer OTHER, SELFPAY ==
[2019-04-19 14:34] VITALS: BMI 48.2
--- NOTE | 2020-04-18 13:00 | MRI_ITS ---
STUDY: MRI LUMBAR SPINE WITHOUT CONTRAST REASON FOR EXAM: Female, 65 years old. LBP, leg pain L. and gt;R TECHNIQUE: Standardized fat and water weighted pulse sequences were obtained in the sagittal and axial planes. COMPARISON: 04/11/2019 FINDINGS: T12-L1: Normal endplates. Normal disc height, hydration and morphology. Normal bilateral facet joints. Normal central canal and bilateral lateral recesses. Normal bilateral intervertebral neural foramina. Normal lumbar lordosis. Mild levoscoliosis centered at L3. Normal conus medullaris that terminates at the L1/L2. L1-2: Normal endplates. Normal disc height, hydration and morphology. Normal bilateral facet joints. Normal central canal and bilateral lateral recesses. Normal bilateral intervertebral neural foramina. L2-3: Normal endplates. Normal disc height, hydration and morphology. Normal bilateral facet joints. Normal central canal and bilateral lateral recesses. Normal bilateral intervertebral neural foramina. L3-4: Moderate bilateral facet hypertrophy and ligament flavum hypertrophy. No change in the moderate broad disc protrusion which produces moderate spinal stenosis with the moderate bilateral lateral recess stenosis with abutment of the L4 nerve roots bilaterally and moderate bilateral neural foraminal stenosis. Associated Modic type II endplate changes. L4-5: Moderate bilateral facet hypertrophy with fluid in the facet joints consistent with instability and moderate ligament flavum hypertrophy. No change in the large broad disc protrusion asymmetric to the left which produces a moderate spinal stenosis, moderate right lateral recess stenosis with abutment of the right L5 nerve root, severe left lateral recess stenosis with effacement the left L5 nerve root and moderate left neural foraminal stenosis with abutment of the left L4 nerve root laterally. L5-S1: Mild bilateral facet hypertrophy and ligament flavum hypertrophy. No change in the moderate broad disc protrusion which produces moderate spinal stenosis and moderate left neural foraminal stenosis with abutment of the left L5 nerve root laterally. Normal visualized sacral ala. Normal visualized paraspinous soft tissue structures. MRI/Spine Lumbar (Routine) IMPRESSION: No change from 04/11/2019. Electronically Signed: Ellis Merino MD at 14:04 EST Tel , Service support ,
== END ==
LOC: MRI 12:15
PROVIDERS: PCP Physician Assistant; Referring Provider Anesthesiology Pain Medicine; Visit Provider Anesthesiology Pain Medicine
DX: M54.9 Dorsalgia, unspecified (principal); M79.606 Pain in leg, unspecified
CPT/HCPCS: 72148

== ENCOUNTER 2020-12-27 12:12 | Emergency (ER) | payer OTHER, SELFPAY ==
[2020-12-27 12:14] VITALS: BP 168/93; PULSE 100; RESP 18; TEMP 36.5; O2SAT 94; BMI 46.0
--- NOTE | 2020-12-27 12:32 | CT_ITS ---
STUDY: CTA CHEST REASON FOR EXAM: Female, 65 years old. elevated d dimer hx of PE RADIATION DOSAGE (If Supplied By Facility): CTDIvol = ( 12.66 ) mGy, DLP = ( 533.31 ) mGycm TECHNIQUE: The examination was performed with the intravenous administration of IV 100mL [id number]-[id number]. Post-processing of the angiographic images was performed, with multiplanar reformation and 3D reconstruction. Individualized dose optimization techniques were used for this CT. COMPARISON: None. FINDINGS: Normal enhancement of the main pulmonary artery and right and left pulmonary arteries. Normal enhancement of the bilateral peripheral pulmonary arteries. There is no demonstrated pulmonary embolism. Normal thoracic aorta and visualized great vessels. There is no demonstrated aortic dissection. Normal heart and pericardium. Normal mediastinum. Normal hilar regions. Normal visualized trachea and bronchi. The lungs are well expanded. Normal pulmonary parenchyma. Normal pleura. Normal chest wall structures. Normal osseous structures. Normal visualized upper abdomen. CT/CTA Chest W/WO Contrast IMPRESSION: Normal CTA chest examination, without a demonstrated pulmonary embolism or arterial dissection. Electronically Signed: Ellis Merino MD at 15:17 EDT Tel , Service support ,
--- NOTE | 2020-12-27 12:33 | EX.ED.DYSGE1 ---
HPI History of Present Illness Chief Complaint: Abn Labs Informant: patient Narrative Narrative: 65-year-old female presents to the emergency department stating that her primary care provider called and said that her D-dimer was elevated and she needed to come to emergency. Patient states she has a history of DVT and PE. She states that for the past couple months that she has had intermittent sharp pains in her chest in various locations. She is not currently on a anticoagulant. Patient is currently asymptomatic [facility] Medical History Atherosclerotic heart disease of [place] coronary artery without angina pectoris Chest tightness or pressure Diastolic CHF Essential hypertension Former smoker, stopped smoking many years ago GERD (gastroesophageal reflux disease) Hyperlipidemia Hypertensive emergency Super obesity Type II diabetes mellitus Ventricular tachycardia Home Medications calcium carbonate-vitamin D3 1 ea PO BID 09/27/13 [History Last Taken 08/21/16 0600] cyanocobalamin (vitamin B-12) 1,000 mcg PO DAILY 09/27/13 [History Last Taken 08/21/16 0600] diphenhydramine HCl 50 mg PO QHS PRN PRN 09/27/13 [History Last Taken 08/20/16] fluoxetine 20 mg PO DAILY 09/27/13 [History Last Taken 08/21/16 0600] gabapentin 300 mg PO 4X/DAY 09/27/13 [History Last Taken 05/30/17 05:30 600 MG] multivitamin no.44-vit D3-K 1 ea PO DAILY 09/27/13 [History Last Taken 08/21/16 0600] pravastatin 20 mg PO QHS 09/27/13 [History Last Taken 08/20/16] aspirin 81 mg PO QHS 09/28/13 [History Last Taken 08/20/16] oxycodone-acetaminophen 1 tab PO Q6H 08/21/16 [History Last Taken 09/23/16 07:00] iron aspgl,ps complex-vit C-sa 150 mg PO DAILYCM #60 cap 08/22/16 [Rx Last Taken Unknown] pantoprazole 40 mg PO DAILY #60 tab 08/22/16 [Rx Last Taken 05/30/17 05:30 40 MG] Lactobacillus rhamnosus GG 1 ea PO DAILY 06/06/18 [History Last Taken Unknown] biotin 5 mg PO DAILY 06/06/18 [History Last Taken Unknown] atenolol 50 mg PO QHS #30 tab 06/08/18 [Rx Last Taken Unknown] furosemide 40 mg PO DAILY #30 tab 06/08/18 [Rx Last Taken Unknown] glipizide 5 mg PO BID #60 tab 06/08/18 [Rx Last Taken Unknown] losartan 50 mg PO DAILY #30 tab 06/08/18 [Rx Last Taken Unknown] potassium chloride 20 meq PO DAILY #30 tab 06/08/18 [Rx Last Taken Unknown] Allergy/AdvReac Type Severity Reaction Status Date / Time naproxen AdvReac Itching Verified 12/27/20 12:14 Family History Father , in his 50's from [place] CAD (coronary artery disease) Myocardial infarction Sudden cardiac Mother Skin cancer Diabetes Hypertension Brother CAD (coronary artery disease) S/P CABG (coronary artery bypass graft) Grandmother Diabetes Hypertension Uncle Leukemia Surgical History History of left heart catheterization (06/08/18) History of Prudencio-en-Y gastric bypass Social History (Updated 12/27/20 @ 12:[address] Mata Elmore DO) Smoking Status: Former smoker quit date: 05/09/99 pack-years: 25 substance use type: does not use ROS ROS ED Constitutional Constitutional ED: Denies chills or weight loss Eyes Eyes: Denies change in vision or diplopia ENT ENT ED: Denies ear pain, rhinorrhea or sore throat Cardiovascular Cardiovascular: Reports chest pain; Denies orthopnea, palpitations or racing heartbeat Respiratory/Chest Respiratory/Chest: Denies cough, dyspnea or orthopnea Gastrointestinal Gastrointestinal: Denies abdominal pain, diarrhea, nausea or vomiting Genitourinary Genitourinary ED: Denies dysuria, hematuria or urinary frequency Musculoskeletal Musculoskeletal: Denies arthralgias or myalgias Integumentary Denies abscess or rash Neurologic Neurologic: Denies headache(s) or weakness Psychiatric Psychiatric: Denies anxiety, depression, suicidal ideation or suicidal thoughts Endocrine Endocrinology: Denies polydipsia, polyphagia or polyuria Allergic/Immunologic Allergic/Immunologic ED: Denies mouth swelling, tongue swelling or urticaria EXAM Physical Exam Const Vital Signs: 12/27/20 12:14 12/27/20 12:24 12/27/20 12:44 Temperature 97.7 F L Temperature Source Temporal Pulse Rate 100 97 Respiratory Rate 18 14 Respiratory Effort Normal Respiratory Pattern Normal Blood Pressure 168/93 H 157/91 H Blood Pressure Mean 118 113 Pulse Ox 94 93 Oxygen Delivery Method Room Air Room Air 12/27/20 15:13 Temperature Temperature Source Pulse Rate 95 Respiratory Rate 15 Respiratory Effort Respiratory Pattern Blood Pressure 144/85 H Blood Pressure Mean 104 Pulse Ox 95 Oxygen Delivery Method Room Air Positive well nourished, well developed and obese General Appearance ED: well developed Nutritional Appearance: obese HEENT Reports normocephalic, head/scalp atraumatic and moist mucous membranes Eyes PERRL and EOMs intact bilaterally Neck no lymphadenopathy, supple and no JVD Resp normal respiratory effort and clear to auscultation bilaterally Cardio regular rate, regular rhythm and no murmurs GI normal to inspection, nondistended, normoactive bowel sounds and non-tender Palpation: soft Back/Spine no CVA tenderness and normal ROM Extremity normal to inspection General Extremety ED: Negative for edema General Extremity: Negative for edema Neuro oriented x3 and CN's II-XII intact bilaterally Sensorium / Orientation: alert Motor Exam: strength 5/5 throughout Psych mental status grossly normal Mood & Affect: Negative for depressed or tearful Skin no rashes or lesions noted and no wounds MDM MDM MDM Narrative Medical decision making narrative: BMP was obtained to assess the patient's creatinine. Noted glucose of 282. CTA of the chest is negative for pulmonary embolism or dissection. Patient will be discharged home to follow-up with her doctor. Lab Data Attestation: I reviewed the patient's lab results. Labs: Laboratory Results - last 24 hr 12/27/20 12:40 Sodium 136 Potassium 4.0 Chloride 99 Carbon Dioxide 28.0 Anion Gap 9 BUN 14 Creatinine 0.66 Estim Creat Clear Calc 74.36 Est GFR (MDRD) Af Amer 116 Est GFR (MDRD) Non-Af 95 BUN/Creatinine Ratio 21.2 H Glucose 282 H Calcium 8.5 Radiography Diagnostic Testing: Radiology Impression Chest CTA 12/27/20 12:32 IMPRESSION: Normal CTA chest examination, without a demonstrated pulmonary embolism or arterial dissection. Electronically Signed: Ellis Merino MD at 15:17 EDT Tel , Service support , Discharge Plan Triage Chief Complaint: Abn Labs ED Provider: Mata Elmore Dx/Rx/DC Orders Clinical Impression: Chest pain, D-dimer, elevated Instructions: ED Chest Pain, Uncertain Cause Prescriptions: No Action diphenhydramine HCl 25 MG capsule 50 mg PO QHS PRN PRN (Reason: Sleep) RF: 0 pravastatin 20 MG tablet 20 mg PO QHS RF: 0 cyanocobalamin (vitamin B-12) 1,000 MCG/ML drops 1,000 mcg PO DAILY RF: 0 gabapentin 300 MG capsule 300 mg PO 4X/DAY RF: 0 fluoxetine 20 MG capsule 20 mg PO DAILY RF: 0 calcium carbonate-vitamin D3 1 EACH tablet 1 ea PO BID RF: 0 multivitamin no.44-vit D3-K 1 EACH capsule 1 ea PO DAILY RF: 0 aspirin 81 MG tablet,chewable 81 mg PO QHS RF: 0 oxycodone-acetaminophen 1 EACH tablet 1 tab PO Q6H RF: 0 iron aspgl,ps complex-vit C-sa 150 MG capsule 150 mg PO DAILYCM Qty: 60 RF: 0 pantoprazole 40 MG tablet 40 mg PO DAILY Qty: 60 RF: 0 biotin 5 MG capsule 5 mg PO DAILY RF: 0 Lactobacillus rhamnosus GG 1 EACH capsule 1 ea PO DAILY RF: 0 losartan 50 MG tablet 50 mg PO DAILY Qty: 30 RF: 0 furosemide 40 MG tablet 40 mg PO DAILY Qty: 30 RF: 0 potassium chloride 20 MEQ tablet 20 meq PO DAILY Qty: 30 RF: 0 atenolol 50 MG tablet 50 mg PO QHS Qty: 30 RF: 0 glipizide 5 MG tablet 5 mg PO BID Qty: 60 RF: 0 Primary Care Provider: Jaspreet Bermeo Referrals: Jaspreet Bermeo, PA [Primary Care Provider] - [facility] appointment Disposition Disposition: Home, Self Care
[2020-12-27 12:44] VITALS: BP 157/91; PULSE 97; RESP 14; O2SAT 93
[2020-12-27 13:14] LABS: Anion Gap 9 (5-15); BUN 14 mg/dL (7-18); BUN/Creat Ratio 21.2 RATIO (10-20); Calcium,Total 8.5 mg/dL (8.5-10.1); Chloride 99 mmol/L (98-107); Creatinine, Serum 0.66 mg/dL (0.55-1.02); EST Glomerular Filtration Rate 95 mL/min (>60); Est Glom Filt Rate - Afr Amer 116 mL/min (>60); Estimated Creatinine Clearance 74.36 ml/min; Glucose 282 mg/dL (74-106); Sodium Level 136 mmol/L (136-145)
[2020-12-27 15:13] VITALS: BP 144/85; PULSE 95; RESP 15; O2SAT 95
[2020-12-27 15:48] VITALS: BP 145/90; PULSE 93; RESP 18; O2SAT 95
== END 2020-12-27 15:49 | disposition home or self-care (01) ==
PROVIDERS: Emergency Provider Emergency Medicine; PCP Physician Assistant
DX: R07.89 Other chest pain (principal); R79.89 Other specified abnormal findings of blood chemistry; E11.9 Type 2 diabetes mellitus without complications; E78.5 Hyperlipidemia, unspecified; I25.10 Atherosclerotic heart disease of native coronary artery without angina pectoris; I47.2 Ventricular tachycardia; I11.0 Hypertensive heart disease with heart failure; I50.30 Unspecified diastolic (congestive) heart failure; K21.9 Gastro-esophageal reflux disease without esophagitis; E66.9 Obesity, unspecified; Z68.42 Body mass index [BMI] 45.0-49.9, adult; Z86.711 Personal history of pulmonary embolism; Z86.718 Personal history of other venous thrombosis and embolism; Z79.82 Long term (current) use of aspirin; Z79.84 Long term (current) use of oral hypoglycemic drugs; Z79.899 Other long term (current) drug therapy; Z87.891 Personal history of nicotine dependence
CPT/HCPCS: 71275; 80048; 99283; Q9967; A4216

== ENCOUNTER 2021-02-17 11:13 | Emergency (ER) | payer OTHER, MEDICARE, SELFPAY ==
[2021-02-17 11:14] VITALS: BP 182/103; PULSE 100; RESP 16; TEMP 37; O2SAT 94; BMI 45.4
--- NOTE | 2021-02-17 11:58 | EKG12_ITS ---
Test Reason : SOB Blood Pressure : / mmHG Vent. Rate : 094 BPM Atrial Rate : 094 BPM P-R Int : 144 ms QRS Dur : 088 ms QT Int : 380 ms P-R-T Axes : 059 036 044 degrees QTc Int : 475 ms Sinus rhythm with Premature atrial complexes Otherwise normal ECG Confirmed by FRANCIS RAMSEY, CONCHA ([id number]), editor publications JULIANO BROOKS ([id number]) on 02/18/2021 9:03:41 AM Referred By: JOSE Confirmed By:CONCHA BLANCO MD
--- NOTE | 2021-02-17 11:59 | EDS_ITS ---
HPI History of Present Illness Chief Complaint: Shortness of Breath Informant: patient Narrative Narrative: 65-year-old female presented to the emergency department with dyspnea. Symptoms started about 3 weeks ago and have progressively worsened. She notes a pressure in her chest. She states that she does not feel like she can take a full breath. 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 She also is a former smoker and diabetic. She has had prior DVT PE. She is no longer on blood thinners. She denies any fever or cough. No weight gain. No swelling the legs that is abnormal for her. [facility] Medical History Atherosclerotic heart disease of [place] coronary artery without angina pectoris Chest tightness or pressure Diastolic CHF Essential hypertension Former smoker, stopped smoking many years ago GERD (gastroesophageal reflux disease) Hyperlipidemia Hypertensive emergency Super obesity Type II diabetes mellitus Ventricular tachycardia Home Medications calcium carbonate-vitamin D3 1 ea PO BID 09/27/13 [History Last Taken 08/21/16 0600] cyanocobalamin (vitamin B-12) 1,000 mcg PO DAILY 09/27/13 [History Last Taken 08/21/16 0600] diphenhydramine HCl 50 mg PO QHS PRN PRN 09/27/13 [History Last Taken 08/20/16] fluoxetine 20 mg PO DAILY 09/27/13 [History Last Taken 08/21/16 0600] gabapentin 300 mg PO 4X/DAY 09/27/13 [History Last Taken 05/30/17 05:30 600 MG] multivitamin no.44-vit D3-K 1 ea PO DAILY 09/27/13 [History Last Taken 08/21/16 0600] pravastatin 20 mg PO QHS 09/27/13 [History Last Taken 08/20/16] aspirin 81 mg PO QHS 09/28/13 [History Last Taken 08/20/16] oxycodone-acetaminophen 1 tab PO Q6H 08/21/16 [History Last Taken 09/23/16 07:00] iron aspgl,ps complex-vit C-sa 150 mg PO DAILYCM #60 cap 08/22/16 [Rx Last Taken Unknown] pantoprazole 40 mg PO DAILY #60 tab 08/22/16 [Rx Last Taken 05/30/17 05:30 40 MG] Lactobacillus rhamnosus GG 1 ea PO DAILY 06/06/18 [History Last Taken Unknown] biotin 5 mg PO DAILY 06/06/18 [History Last Taken Unknown] atenolol 50 mg PO QHS #30 tab 06/08/18 [Rx Last Taken Unknown] furosemide 40 mg PO DAILY #30 tab 06/08/18 [Rx Last Taken Unknown] glipizide 5 mg PO BID #60 tab 06/08/18 [Rx Last Taken Unknown] losartan 50 mg PO DAILY #30 tab 06/08/18 [Rx Last Taken Unknown] potassium chloride 20 meq PO DAILY #30 tab 06/08/18 [Rx Last Taken Unknown] furosemide [Lasix] 40 mg PO DAILY #7 tab 02/17/21 [Rx Last Taken Unknown] Allergy/AdvReac Type Severity Reaction Status Date / Time naproxen AdvReac Itching Verified 02/17/21 11:17 Family History Father , in his 50's from [place] CAD (coronary artery disease) Myocardial infarction Sudden cardiac Mother Skin cancer Diabetes Hypertension Brother CAD (coronary artery disease) S/P CABG (coronary artery bypass graft) Grandmother Diabetes Hypertension Uncle Leukemia Surgical History History of left heart catheterization (06/08/18) History of Prudencio-en-Y gastric bypass Social History Smoking Status: Former smoker quit date: 05/09/99 pack-years: 25 substance use type: does not use ROS ROS ED Constitutional Constitutional ED: Denies chills or weight loss Eyes Eyes: Denies change in vision or diplopia ENT ENT ED: Denies ear pain, rhinorrhea or sore throat Cardiovascular Cardiovascular: Reports chest pain; Denies orthopnea, palpitations or racing heartbeat Respiratory/Chest Respiratory/Chest: Reports dyspnea and dyspnea on exertion; Denies cough or orthopnea Gastrointestinal Gastrointestinal: Denies abdominal pain, diarrhea, nausea or vomiting Genitourinary Genitourinary ED: Denies dysuria, hematuria or urinary frequency Musculoskeletal Musculoskeletal: Denies arthralgias or myalgias Integumentary Denies abscess or rash Neurologic Neurologic: Denies headache(s) or weakness Psychiatric Psychiatric: Denies anxiety, depression, suicidal ideation or suicidal thoughts Endocrine Endocrinology: Denies polydipsia, polyphagia or polyuria Allergic/Immunologic Allergic/Immunologic ED: Denies mouth swelling, tongue swelling or urticaria EXAM Physical Exam Const Vital Signs: 02/17/21 11:14 02/17/21 12:17 02/17/21 13:25 Temperature 98.6 F Temperature Source Temporal Pulse Rate 100 93 Respiratory Rate 16 20 H Respiratory Effort Short of Breath Blood Pressure 182/103 H 159/99 H Blood Pressure Mean 129 119 Pulse Ox 94 93 Oxygen Delivery Method Room Air Room Air Room Air Positive well nourished, well developed and obese General Appearance ED: well developed Nutritional Appearance: obese HEENT Reports normocephalic, head/scalp atraumatic and moist mucous membranes Eyes PERRL and EOMs intact bilaterally Neck no lymphadenopathy, supple and no JVD Resp normal respiratory effort and clear to auscultation bilaterally Auscultation: diminished lung sounds right Cardio regular rhythm and no murmurs Rate: tachycardic GI normal to inspection, nondistended, normoactive bowel sounds and non-tender Palpation: soft Back/Spine no CVA tenderness and normal ROM Extremity normal to inspection General Extremety ED: Negative for edema General Extremity: Negative for edema Neuro oriented x3 and CN's II-XII intact bilaterally Sensorium / Orientation: alert Motor Exam: strength 5/5 throughout Psych mental status grossly normal Mood & Affect: Negative for depressed or tearful Skin no rashes or lesions noted and no wounds MDM MDM MDM Narrative Medical decision making narrative: CBC was negative. BMP showed a glucose of 146. BNP is slightly elevated 229.8. Troponin is 32. Covid test is negative My interpretation of the chest x-ray is no acute process. Because of the patient's previous pulmonary embolism a CTA of the chest was ordered which did not demonstrate pulmonary embolism but suggested perhaps some CHF. Given that the BNP is slightly elevated and her CT findings that could be enough for her to notice a change in feel the symptoms. Working to do a trial of Lasix. Irregardless of how she does with this I think it would be advisable for her to follow-up with primary care. Patient is understanding of the plan is comfortable with Lab Data Attestation: I reviewed the patient's lab results. Labs: Laboratory Results - last 24 hr 02/17/21 02/17/21 02/17/21 11:43 11:43 11:43 WBC 6.5 RBC 4.33 Hgb 12.1 Hct 39.3 MCV 90.8 MCH 27.9 MCHC 30.8 L RDW Std Deviation 47.3 H RDW Coeff of Lissette 14.2 Plt Count 254 MPV 10.8 Immature Gran % (Auto) 0.300 Neut % (Auto) 66.7 Lymph % (Auto) 19.0 Burnett % (Auto) 11.7 H Eos % (Auto) 1.5 Baso % (Auto) 0.8 Absolute Neuts (auto) 4.3 Absolute Lymphs (auto) 1.23 Nucleated RBC % 0 Sodium 140 Potassium 4.0 Chloride 102 Carbon Dioxide 31.0 Anion Gap 7 BUN 14 Creatinine 0.74 Estim Creat Clear Calc 66.32 Est GFR (MDRD) Af Amer 102 Est GFR (MDRD) Non-Af 84 BUN/Creatinine Ratio 19.0 Glucose 146 H Calcium 8.6 Troponin I High Sens 32 B-Natriuretic Peptide 229.8 H Radiography Diagnostic Testing: Clinical Impression(s) from Imaging Studies Chest X-Ray 02/17/21 12:20 IMPRESSION: Patchy bilateral pulmonary infiltrates worse in the right lower lobe. Follow-up is suggested. Electronically Signed: Deonte Palencia MD at 12:53 EDT , Service support , Chest CTA 02/17/21 13:55 IMPRESSION: No evidence of pulmonary emphysema. Findings suggestive of a mild degree of CHF. Increased markings in the right middle lobe suggestive of atelectasis and/or scarring. Electronically Signed: Deonte Palencia MD at 14:41 EDT , Service support , EKG Initial EKG: Attestation: I personally reviewed and interpreted this EKG as follows: Comments: Sinus rhythm with a ventricular rate of 94 bpm. PAC noted. Discharge Plan Triage Chief Complaint: Shortness of Breath ED Provider: Mata Elmore Dx/Rx/DC Orders Instructions: ED Dyspnea Prescriptions: New furosemide [Lasix] 40 mg tablet 40 mg PO DAILY Qty: 7 RF: 0 No Action diphenhydramine HCl 25 MG capsule 50 mg PO QHS PRN PRN (Reason: Sleep) RF: 0 pravastatin 20 MG tablet 20 mg PO QHS RF: 0 cyanocobalamin (vitamin B-12) 1,000 MCG/ML drops 1,000 mcg PO DAILY RF: 0 gabapentin 300 MG capsule 300 mg PO 4X/DAY RF: 0 fluoxetine 20 MG capsule 20 mg PO DAILY RF: 0 calcium carbonate-vitamin D3 1 EACH tablet 1 ea PO BID RF: 0 multivitamin no.44-vit D3-K 1 EACH capsule 1 ea PO DAILY RF: 0 aspirin 81 MG tablet,chewable 81 mg PO QHS RF: 0 oxycodone-acetaminophen 1 EACH tablet 1 tab PO Q6H RF: 0 iron aspgl,ps complex-vit C-sa 150 MG capsule 150 mg PO DAILYCM Qty: 60 RF: 0 pantoprazole 40 MG tablet 40 mg PO DAILY Qty: 60 RF: 0 biotin 5 MG capsule 5 mg PO DAILY RF: 0 Lactobacillus rhamnosus GG 1 EACH capsule 1 ea PO DAILY RF: 0 losartan 50 MG tablet 50 mg PO DAILY Qty: 30 RF: 0 furosemide 40 MG tablet 40 mg PO DAILY Qty: 30 RF: 0 potassium chloride 20 MEQ tablet 20 meq PO DAILY Qty: 30 RF: 0 atenolol 50 MG tablet 50 mg PO QHS Qty: 30 RF: 0 glipizide 5 MG tablet 5 mg PO BID Qty: 60 RF: 0 Primary Care Provider: Jaspreet Bermeo Referrals: Jaspreet Bermeo PA [Primary Care Provider] - 5-7 Days Disposition Disposition: Home, Self Care
[2021-02-17 12:17] VITALS: O2SAT 94
--- NOTE | 2021-02-17 12:20 | RAD_ITS ---
STUDY: X-RAY CHEST REASON FOR EXAM: Female, 65 years old. Chest pain TECHNIQUE: Single AP portable view of the chest. COMPARISON: Comparison is made with prior study dated 06/06/2018. FINDINGS: EKG electrodes are seen. Patchy bilateral infiltrates worse at the right lung base. Follow-up is recommended. There is no demonstrated pleural abnormality. Normal size heart. Normal mediastinum and shyanne. Normal visualized pulmonary arteries. Normal visualized aortic arch and descending thoracic aorta. There are degenerative changes of the visualized thoracic spine. Mild dextroscoliosis. Normal visualized ribs, clavicles, and shoulders. There is no demonstrated abnormality of the visualized soft tissue structures of the upper abdomen. RAD/Chest 1 View (Portable) IMPRESSION: Patchy bilateral pulmonary infiltrates worse in the right lower lobe. Follow-up is suggested. Electronically Signed: Deonte Palencia MD at 12:53 EDT , Service support ,
[2021-02-17 12:21] LABS: Absolute Lymphocyte Count 1.23 X10^3/uL (0.83-4.51); Absolute Neutrophil Count 4.3 X10^3/uL (2.0-7.7); Basophil# 0.05 X10^3/uL; Basophil% 0.8 % (0-1); Eosinophils% 1.5 % (0-5); Hematocrit 39.3 % (37-47); Hemoglobin 12.1 g/dL (12.0-15.0); Lymphocyte # 1.23 X10^3/ul (0.83-4.51); Mean Corp Hgb Conc 30.8 g/dL (32-36); Mean Corpuscular Hgb 27.9 pg (27.0-32.0); Mean Corpuscular Volume 90.8 fL (81-99); Mean Platelet Vol. 10.8 fl (6.2-12.0); Monocyte# 0.76 X10^3/uL; Monocyte% 11.7 % (0-10); NRBC Flagged by Analyzer 0 % (0-5); Neutrophil # 4.33 X10^3/uL (2.7-7.7); Neutrophil % 66.7 % (47-70); Platelet Count 254 K/mm3 (150-450); RBC Distribution Width CV 14.2 % (11.6-14.6); RBC Distribution Width SD 47.3 fl (35.1-43.9); Red Blood Count 4.33 M/mm3 (4.2-5.4); White Blood Count 6.5 K/mm3 (4.4-11.0)
[2021-02-17 12:33] LABS: Anion Gap 7 (5-15); BUN 14 mg/dL (7-18); Calcium,Total 8.6 mg/dL (8.5-10.1); Chloride 102 mmol/L (98-107); Creatinine, Serum 0.74 mg/dL (0.55-1.02); EST Glomerular Filtration Rate 84 mL/min (>60); Est Glom Filt Rate - Afr Amer 102 mL/min (>60); Estimated Creatinine Clearance 66.32 ml/min; Glucose 146 mg/dL (74-106); Sodium Level 140 mmol/L (136-145); Troponin-I HS 32 pg/mL (3.0-54.0)
[2021-02-17 12:47] LABS: BNP,B-Type NATRIURETIC PEPTIDE 229.8 pg/mL (0-100)
[2021-02-17 13:25] VITALS: BP 159/99; PULSE 93; RESP 20; O2SAT 93
--- NOTE | 2021-02-17 13:55 | CT_ITS ---
STUDY: CTA CHEST REASON FOR EXAM: Female, 65 years old. Pulmonary embolism. Elevated d-dimer. RADIATION DOSAGE (If Supplied By Facility): CTDIvol = ( 13.85 ) mGy, DLP = ( 522.84 ) mGycm TECHNIQUE: The examination was performed with the intravenous administration of IV 100mL [id number]-[id number]. Post-processing of the angiographic images was performed, with multiplanar reformation and 3D reconstruction. Individualized dose optimization techniques were used for this CT. COMPARISON: Comparison is made with prior examination dated 12/27/2020 and prior chest radiograph done earlier today. FINDINGS: Normal enhancement of the main pulmonary artery and right and left pulmonary arteries. Normal enhancement of the bilateral peripheral pulmonary arteries. There is no demonstrated pulmonary embolism. Normal thoracic aorta and visualized great vessels. There is no demonstrated aortic dissection. There are calcifications of the coronary arteries. There are visualized mediastinal lymph nodes, which are within normal size limits, and with normal morphology. Normal hilar regions. Normal visualized trachea and bronchi. The lungs are well expanded. There is evidence of increased interlobular septal markings suggestive of mild degree of interstitial edema. Mild increased markings in the right middle lobe suggestive of either scarring and/or atelectasis. Normal pleura. Normal chest wall structures. There are degenerative changes of thoracic spine. Calcified splenic granulomas. CT/CTA Chest W/WO Contrast IMPRESSION: No evidence of pulmonary emphysema. Findings suggestive of a mild degree of CHF. Increased markings in the right middle lobe suggestive of atelectasis and/or scarring. Electronically Signed: Deonte Palencia MD at 14:41 EDT , Service support ,
[2021-02-17 15:04] VITALS: BP 151/89; PULSE 95; RESP 17; O2SAT 93
== END 2021-02-17 15:10 | disposition home or self-care (01) ==
PROVIDERS: Emergency Provider Emergency Medicine; PCP Physician Assistant
DX: R06.00 Dyspnea, unspecified (principal); R07.89 Other chest pain; I49.1 Atrial premature depolarization; E66.01 Morbid (severe) obesity due to excess calories; Z68.42 Body mass index [BMI] 45.0-49.9, adult; E11.9 Type 2 diabetes mellitus without complications; E78.5 Hyperlipidemia, unspecified; I47.2 Ventricular tachycardia; I25.10 Atherosclerotic heart disease of native coronary artery without angina pectoris; I11.0 Hypertensive heart disease with heart failure; I50.30 Unspecified diastolic (congestive) heart failure; K21.9 Gastro-esophageal reflux disease without esophagitis; Z86.711 Personal history of pulmonary embolism; Z86.718 Personal history of other venous thrombosis and embolism; Z79.82 Long term (current) use of aspirin; Z79.84 Long term (current) use of oral hypoglycemic drugs; Z79.899 Other long term (current) drug therapy; Z87.891 Personal history of nicotine dependence
CPT/HCPCS: 71045; 71275; 80048; 83880; 84484; 85025; 87426; 93005; 99284; Q9967; A4216

== ENCOUNTER 2021-04-18 12:58 | Outpatient (CLI) | payer MEDICARE, OTHER, SELFPAY ==
[2021-04-18 13:25] VITALS: BP 143/84; PULSE 87; RESP 18; TEMP 37.1; O2SAT 98; BMI 34.3
[2021-04-18] MEDS: 0.9% Saline Lock 10 ML Syringe IV (13:27)
[2021-04-18 14:00] VITALS: BP 137/80; PULSE 83; RESP 16; TEMP 37.2; O2SAT 95
[2021-04-18 14:59] VITALS: BP 163/83; PULSE 88; RESP 16; TEMP 36.9; O2SAT 98
== END 2021-04-18 15:00 | disposition home or self-care (01) ==
LOC: MS3OUT 13:00 → MS3 13:01
PROVIDERS: PCP Physician Assistant; Referring Provider Nurse Practitioner Adult Health; Visit Provider Nurse Practitioner Adult Health
DX: Z23 Encounter for immunization (principal); U07.1 COVID-19
CPT/HCPCS: J7050; M0245; Q0245; A4216

== ENCOUNTER 2021-07-08 08:30 | Outpatient (CLI) | payer MEDICARE, OTHER, SELFPAY ==
--- NOTE | 2021-07-08 08:50 | RAD_ITS ---
STUDY: X-RAY - PELVIS AND BILATERAL HIPS REASON FOR EXAM: Female, 66 years old. Bilateral hip pain. TECHNIQUE: AP view of the pelvis.? 2 views of the right hip, and 2 views of the left hip were obtained. COMPARISON: 01/17/2019. FINDINGS: There is a non-specific bowel gas pattern. Normal visualized soft tissue structures. Osteopenia. Mild arthrosis of both sacroiliac joints. Normal symphysis pubis. Stable mild arthrosis of both hips. RAD/Hips B/L min 2 views w/ Pelvis IMPRESSION: Stable osteopenia with osteoarthritic changes as described. No acute abnormality, erosive changes or evidence of fusion. Electronically Signed: Elijah Adair MD at 11:11 EST ,
== END 2021-07-08 23:59 | disposition home or self-care (01) ==
LOC: RAD 08:32
PROVIDERS: PCP Physician Assistant; Referring Provider Anesthesiology Pain Medicine; Visit Provider Anesthesiology Pain Medicine
DX: M25.551 Pain in right hip (principal); M25.552 Pain in left hip
CPT/HCPCS: 73521

== ENCOUNTER 2021-07-08 15:22 | Emergency (ER) | payer MEDICARE, OTHER, SELFPAY ==
[2021-07-08] VITALS (7 sets, daily range): BP systolic 143–161; BP diastolic 66–82; PULSE 86–102; RESP 16–18; TEMP 36.3; O2SAT 94–96; BMI 46.7
--- NOTE | 2021-07-08 16:01 | EKG12_ITS ---
Test Reason : SOB Blood Pressure : / mmHG Vent. Rate : 092 BPM Atrial Rate : 092 BPM P-R Int : 160 ms QRS Dur : 090 ms QT Int : 380 ms P-R-T Axes : 063 030 035 degrees QTc Int : 469 ms Sinus rhythm with occasional Premature ventricular complexes Otherwise normal ECG Confirmed by ALBAN RAMSEY, JUSTINA ([id number]), assignment editor JULIANO BROOKS ([id number]) on 07/09/2021 2:06:01 PM Referred By: JEISON Confirmed By:ORESTES PHOENIX MD
--- NOTE | 2021-07-08 16:05 | RAD_ITS ---
STUDY: X-RAY CHEST REASON FOR EXAM: Female, 66 years old. chest pain TECHNIQUE: Single AP portable view of the chest. COMPARISON: 02/17/2021 FINDINGS: The lungs are clear and expanded. There is no demonstrated pleural abnormality. Normal size heart. Normal mediastinum and shyanne. Normal visualized pulmonary arteries. Normal visualized aortic arch and descending thoracic aorta. Normal visualized thoracic spine. Normal visualized ribs, clavicles, and shoulders. There is no demonstrated abnormality of the visualized soft tissue structures of the upper abdomen. RAD/Chest 1 View (Portable) IMPRESSION: Normal x-ray examination of the chest. Electronically Signed: Ellis Merino MD at 16:25 EST ,
--- NOTE | 2021-07-08 16:06 | EX.ED.DYSGE1 ---
HPI History of Present Illness Chief Complaint: Shortness of Breath Informant: patient Narrative Narrative: Patient is a 66-year-old female with history of coronary artery disease with PCI, angina, hypertension, hyperlipidemia, diabetes mellitus presenting with chest pain and shortness of breath. Patient states that for the past 2 to 3 months has had increased dyspnea on exertion and gets what she describes as a cramp in her chest with a certain amount of exertion. She states this is getting worse. Today she was at work at [employer] where she stands and had chest cramping all day. She notes that at night she has to sleep in a recliner because she cannot breathe if she lays flat in her bed. She is intermittently compliant with her Lasix. She states she takes it 3 to 5 days a week but does not take it when she works because she have to urinate too much. Patient is not sure she is gained weight. She has chronic edema which is not changed. She does have a history of DVT and PE that was after a stomach surgery. She does not currently on any anticoagulation. She notes she had an echocardiogram last week that showed an EF of 30% which is new for her. Chart review shows that patient had a cardiac catheterization in 2019 for unstable angina. At that time she had an EF of 45% with 30% mild luminal irregularities diffusely. The recent echocardiogram is not available for my review. [facility] Medical History Atherosclerotic heart disease of [place] coronary artery without angina pectoris Chest tightness or pressure Diastolic CHF Essential hypertension Former smoker, stopped smoking many years ago GERD (gastroesophageal reflux disease) Hyperlipidemia Hypertensive emergency Super obesity Type II diabetes mellitus Ventricular tachycardia Home Medications calcium carbonate-vitamin D3 1 ea PO BID 09/27/13 [History Last Taken 07/07/21] cyanocobalamin (vitamin B-12) 1,000 mcg PO DAILY 09/27/13 [History Last Taken 07/08/21] diphenhydramine HCl 50 mg PO QHS PRN PRN 09/27/13 [History Last Taken 07/07/21] fluoxetine 20 mg PO DAILY 09/27/13 [History Last Taken 2 Weeks Ago ~06/24/21] pravastatin 20 mg PO QHS 09/27/13 [History Last Taken 07/07/21] aspirin 81 mg PO QHS 09/28/13 [History Last Taken 07/07/21] oxycodone-acetaminophen 1 tab PO Q6H 08/21/16 [History Last Taken 07/08/21] pantoprazole 40 mg PO DAILY #60 tab 08/22/16 [Rx Last Taken 07/08/21] glipizide 5 mg PO BID #60 tab 06/08/18 [Rx Last Taken 07/08/21] losartan 50 mg PO DAILY #30 tab 06/08/18 [Rx Last Taken 07/08/21] carvedilol 6.25 mg PO BID 07/08/21 [History Last Taken 07/07/21] furosemide 40 mg PO DAILY 07/08/21 [History Last Taken 07/07/21] gabapentin 600 mg PO 4X/DAY 07/08/21 [History Last Taken 07/08/21] multivitamin 1 tab PO DAILY 07/08/21 [History Last Taken 07/08/21] nitroglycerin 0.4 mg SUBLINGUAL Q5M 07/08/21 [History Last Taken 07/08/21] Allergy/AdvReac Type Severity Reaction Status Date / Time naproxen AdvReac Itching Verified 07/08/21 15:25 Family History Father , in his 50's from [place] CAD (coronary artery disease) Myocardial infarction Sudden cardiac Mother Skin cancer Diabetes Hypertension Brother CAD (coronary artery disease) S/P CABG (coronary artery bypass graft) Grandmother Diabetes Hypertension Uncle Leukemia Surgical History History of left heart catheterization (06/08/18) History of Prudencio-en-Y gastric bypass Social History Smoking Status: Former smoker quit date: 05/09/99 pack-years: 25 substance use type: does not use ROS ROS ED Constitutional Constitutional ED: Denies chills or fever(s) Eyes Eyes: Denies change in vision ENT ENT ED: Denies rhinorrhea or sore throat Cardiovascular Cardiovascular: Reports chest pain and paroxysmal nocturnal dyspnea; Denies palpitations Respiratory/Chest Respiratory/Chest: Reports dyspnea, dyspnea on exertion and paroxysmal nocturnal dyspnea; Denies cough Gastrointestinal Gastrointestinal: Denies abdominal pain, nausea or vomiting Genitourinary Genitourinary ED: Denies dysuria, hematuria or urinary frequency Musculoskeletal Musculoskeletal: Reports back pain and other Details: left hip pain ; Denies arthralgias or myalgias Integumentary Denies rash Neurologic Neurologic: Denies headache(s), paresthesias or weakness Psychiatric Psychiatric: Denies depression EXAM Physical Exam Const Vital Signs: 07/08/21 15:25 07/08/21 15:39 07/08/21 16:16 Temperature 97.3 F L Temperature Source Temporal Pulse Rate 102 H Respiratory Rate 16 Respiratory Effort Short of Breath Respiratory Depth Normal Respiratory Pattern Tachypnea Blood Pressure 161/79 H Blood Pressure Mean 106 Pulse Ox 96 95 Oxygen Delivery Method Room Air Room Air Room Air 07/08/21 17:45 07/08/21 19:13 07/08/21 19:43 Temperature Temperature Source Pulse Rate 92 86 86 Respiratory Rate 18 16 16 Respiratory Effort Respiratory Depth Respiratory Pattern Blood Pressure 143/66 H 147/82 H 147/82 H Blood Pressure Mean 91 103 Pulse Ox 96 95 95 Oxygen Delivery Method Room Air Room Air Positive well nourished, well developed and obese General Appearance ED: well developed Nutritional Appearance: obese HEENT Reports moist mucous membranes Negative for tenderness Eyes PERRL and EOMs intact bilaterally Neck supple and no JVD Chest Wall inspection of chest normal Resp normal respiratory effort Auscultation: diminished lung sounds bilateral lower; Negative for rales, rhonchi or wheezes Cardio regular rate, regular rhythm and no murmurs GI normal to inspection, nondistended, normoactive bowel sounds Palpation: soft Back/Spine no CVA tenderness Extremity normal to inspection General Extremety ED: Negative for edema or tenderness General Extremity: Negative for edema Neuro oriented x3 and CN's II-XII intact bilaterally Sensorium / Orientation: alert Psych mental status grossly normal Skin no rashes or lesions noted and no wounds MDM MDM MDM Narrative Medical decision making narrative: Patient evaluated for chest pain. Is been ongoing for couple months but has been more constant today when she was at work. She is also had some ongoing dyspnea on exertion. Patient's EKG does not show any acute changes compared to February 2021. Is normal sinus rhythm with PVC. High sensitivity troponin is 28 and 33. Patient does not have any other significant laboratory normalities. BNP is mildly elevated at 120 but this is actually below her baseline. Clinically she does not appear fluid overloaded. Chest x-ray does not show any acute process, pulmonary vascular congestion or pleural effusions. Given her history of DVT/PE I did also obtain CTA. This was negative for acute process. Discussed the case with cardiology on-call who is comfortable with outpatient follow-up given no acute/ischemic EKG changes and normal high-sensitivity troponin x2. In addition patient has been having this for a long months if not longer. Patient was ambulated in the emergency room and was asymptomatic. She did not desaturate or have any abnormal tachycardia. Lab Data Attestation: I reviewed the patient's lab results. Labs: Laboratory Results - last 24 hr 07/08/21 07/08/21 07/08/21 15:50 15:50 15:50 WBC 7.9 RBC 4.58 Hgb 12.9 Hct 39.7 MCV 86.7 MCH 28.2 MCHC 32.5 RDW Std Deviation 48.2 H RDW Coeff of Lissette 15.3 H Plt Count 274 MPV 11.5 Immature Gran % (Auto) 0.400 Neut % (Auto) 62.3 Lymph % (Auto) 21.2 Bremer % (Auto) 13.4 H Eos % (Auto) 1.9 Baso % (Auto) 0.8 Absolute Neuts (auto) 4.9 Absolute Lymphs (auto) 1.68 Nucleated RBC % 0 Sodium 133 L Potassium 4.1 Chloride 96 L Carbon Dioxide 29.0 Anion Gap 8 BUN 22 H Creatinine 0.94 Estim Creat Clear Calc 51.52 Est GFR (MDRD) Af Amer 76 Est GFR (MDRD) Non-Af 63 BUN/Creatinine Ratio 23.3 H Glucose 367 H Calcium 9.3 Troponin I High Sens 28 B-Natriuretic Peptide 120.1 H 07/08/21 17:58 WBC RBC Hgb Hct MCV MCH MCHC RDW Std Deviation RDW Coeff of Lissette Plt Count MPV Immature Gran % (Auto) Neut % (Auto) Lymph % (Auto) Bremer % (Auto) Eos % (Auto) Baso % (Auto) Absolute Neuts (auto) Absolute Lymphs (auto) Nucleated RBC % Sodium Potassium Chloride Carbon Dioxide Anion Gap BUN Creatinine Estim Creat Clear Calc Est GFR (MDRD) Af Amer Est GFR (MDRD) Non-Af BUN/Creatinine Ratio Glucose Calcium Troponin I High Sens 33 B-Natriuretic Peptide Radiography Chest X-Ray - ED: 1 View, Read by ED Physician, Read by Radiologist and No Acute Disease Diagnostic Testing: Clinical Impression(s) from Imaging Studies Chest X-Ray 07/08/21 16:05 IMPRESSION: Normal x-ray examination of the chest. Electronically Signed: Ellis Merino MD at 16:25 EST , Chest CTA 07/08/21 17:25 IMPRESSION: No demonstrated pulmonary embolism or arterial dissection. Electronically Signed: Manuel Garcia MD at 18:23 EST , Rhythm Strip Rhythm Strip: Sinus Rhythm Rate: 92 Ectopy: PVC(s) EKG Initial EKG: Attestation: I personally reviewed and interpreted this EKG as follows: Interpretation: Sinus Rhythm Comments: Normal sinus rhythm at a rate of 92 with PVC present Normal axis Normal intervals Normal ST segments Compared to prior EKG on 02/17/2021 patient now has a PVC with no other acute changes Discharge Plan Triage Chief Complaint: Shortness of Breath ED Provider: Luci [place] Dx/Rx/DC Orders Clinical Impression: Angina of effort Instructions: ED Angina, Stable Prescriptions: No Action diphenhydramine HCl 25 MG capsule 50 mg PO QHS PRN PRN (Reason: Sleep) RF: 0 pravastatin 20 MG tablet 20 mg PO QHS RF: 0 cyanocobalamin (vitamin B-12) 1,000 MCG/ML drops 1,000 mcg PO DAILY RF: 0 fluoxetine 20 MG capsule 20 mg PO DAILY RF: 0 calcium carbonate-vitamin D3 1 EACH tablet 1 ea PO BID RF: 0 aspirin 81 MG tablet,chewable 81 mg PO QHS RF: 0 oxycodone-acetaminophen 1 EACH tablet 1 tab PO Q6H RF: 0 pantoprazole 40 MG tablet 40 mg PO DAILY Qty: 60 RF: 0 losartan 50 MG tablet 50 mg PO DAILY Qty: 30 RF: 0 glipizide 5 MG tablet 5 mg PO BID Qty: 60 RF: 0 furosemide 40 mg tablet 40 mg PO DAILY RF: 0 carvedilol 6.25 mg tablet 6.25 mg PO BID RF: 0 nitroglycerin 0.4 mg tablet, sublingual 0.4 mg sublingual Q5M RF: 0 multivitamin Tablet 1 tab PO DAILY RF: 0 gabapentin 600 mg tablet 600 mg PO 4X/DAY RF: 0 Primary Care Provider: Jaspreet Bermeo Referrals: Jaspreet Bermeo PA [Primary Care Provider] - Activity Restrictions/Additional Instructions: Please follow-up with your bilingual executive assistant as scheduled. Return with any worsening symptoms. Disposition Disposition: Home, Self Care Discharge Date/Time: 07/08/21 19:49
[2021-07-08 16:17] LABS: Absolute Lymphocyte Count 1.68 X10^3/uL (0.83-4.51); Absolute Neutrophil Count 4.9 X10^3/uL (2.0-7.7); Basophil# 0.06 X10^3/uL; Basophil% 0.8 % (0-1); Eosinophil# 0.15 X10^3/uL; Eosinophils% 1.9 % (0-5); Hematocrit 39.7 % (37-47); Hemoglobin 12.9 g/dL (12.0-15.0); Lymphocyte # 1.68 X10^3/ul (0.83-4.51); Lymphocyte % 21.2 % (19-41); Mean Corp Hgb Conc 32.5 g/dL (32-36); Mean Corpuscular Hgb 28.2 pg (27.0-32.0); Mean Corpuscular Volume 86.7 fL (81-99); Mean Platelet Vol. 11.5 fl (6.2-12.0); Monocyte# 1.06 X10^3/uL; Monocyte% 13.4 % (0-10); NRBC Flagged by Analyzer 0 % (0-5); Neutrophil # 4.94 X10^3/uL (2.7-7.7); Neutrophil % 62.3 % (47-70); Platelet Count 274 K/mm3 (150-450); RBC Distribution Width CV 15.3 % (11.6-14.6); RBC Distribution Width SD 48.2 fl (35.1-43.9); Red Blood Count 4.58 M/mm3 (4.2-5.4); White Blood Count 7.9 K/mm3 (4.4-11.0)
[2021-07-08] MEDS: Aspirin 81 MG TAB.CHEW 324 MG PO (16:20)
[2021-07-08 16:37] LABS: BNP,B-Type NATRIURETIC PEPTIDE 120.1 pg/mL (0-100)
[2021-07-08 16:39] LABS: Anion Gap 8 (5-15); BUN 22 mg/dL (7-18); BUN/Creat Ratio 23.3 RATIO (10-20); Calcium,Total 9.3 mg/dL (8.5-10.1); Chloride 96 mmol/L (98-107); Creatinine, Serum 0.94 mg/dL (0.55-1.02); EST Glomerular Filtration Rate 63 mL/min (>60); Est Glom Filt Rate - Afr Amer 76 mL/min (>60); Estimated Creatinine Clearance 51.52 ml/min; Glucose 367 mg/dL (74-106); Potassium 4.1 mmol/L (3.5-5.1); Sodium Level 133 mmol/L (136-145); Troponin-I HS 28 pg/mL (3.0-54.0)
--- NOTE | 2021-07-08 17:25 | CT_ITS ---
EXAM: CT ANGIOGRAPHY CHEST WITHOUT AND WITH INTRAVENOUS CONTRAST CLINICAL INDICATION: SOB, high risk PE TECHNIQUE: Helically acquired angiography images were obtained of the chest without and with intravenous contrast. This CT exam was performed using one or more of the following dose reduction techniques: automated exposure control, adjustment of the mA and/or kV according to patient size, and/or use of iterative reconstruction technique. This report was created using [employer] report generation technology. MIP reconstructed images were created and reviewed. CONTRAST: IV 100mL [id number] COMPARISON: 02.17.21 FINDINGS: PULMONARY ARTERIES: No demonstrated pulmonary embolism or arterial dissection. AORTA: There is atherosclerotic calcification of the aortic arch with tortuosity and elongation of the aortic arch and descending thoracic aorta. Normal in caliber. No evidence of dissection. GREAT VESSELS OF AORTIC ARCH: Unremarkable. Normal in caliber. No evidence of dissection. LUNGS AND PLEURAL SPACES: Prior right lung surgery. No mass. No pleural effusion or thickening. No pneumothorax. HEART: There are calcifications of the coronary arteries. No pericardial effusion. No signs of right heart strain, ratio of right ventricle to left ventricle measures less than 1. MEDIASTINUM: Unremarkable. No mediastinal or hilar adenopathy. Esophagus is unremarkable. No hiatal hernia. THYROID: Unremarkable. No thyroid lesions. BONES/JOINTS: There are degenerative findings of the thoracic spine. No suspicious lytic or blastic abnormality. GALLBLADDER AND BILE DUCTS: The gallbladder is surgically absent. STOMACH AND BOWEL: There are multiple surgical clips around the stomach. There are also anastomotic sutures around the stomach and altered gastrointestinal anatomy. This is consistent for prior gastric surgery (this may include sleeve, Shar[place], or gastric bypass and other types of gastric surgery). CT/CTA Chest W/WO Contrast IMPRESSION: No demonstrated pulmonary embolism or arterial dissection. Electronically Signed: Manuel Garcia MD at 18:23 EST ,
[2021-07-08 18:22] LABS: Troponin-I HS 33 pg/mL (3.0-54.0)
== END 2021-07-08 19:49 | disposition home or self-care (01) ==
PROVIDERS: Emergency Provider Emergency Medicine; PCP Physician Assistant; Visit Provider Emergency Medicine
DX: I25.118 Atherosclerotic heart disease of native coronary artery with other forms of angina pectoris (principal); I11.0 Hypertensive heart disease with heart failure; I50.32 Chronic diastolic (congestive) heart failure; E66.01 Morbid (severe) obesity due to excess calories; E11.9 Type 2 diabetes mellitus without complications; E78.5 Hyperlipidemia, unspecified; I49.3 Ventricular premature depolarization; Z87.891 Personal history of nicotine dependence; K21.9 Gastro-esophageal reflux disease without esophagitis; Z79.899 Other long term (current) drug therapy; Z91.14 Patient's other noncompliance with medication regimen; Z98.84 Bariatric surgery status; Z86.718 Personal history of other venous thrombosis and embolism; Z86.711 Personal history of pulmonary embolism; Z79.82 Long term (current) use of aspirin; Z79.84 Long term (current) use of oral hypoglycemic drugs
CPT/HCPCS: 71045; 71275; 73521; 80048; 83880; 84484; 85025; 93005; 99284; Q9967; A4216

== ENCOUNTER 2022-04-07 10:09 | Outpatient (CLI) | payer MEDICARE, OTHER, SELFPAY ==
[2022-04-07 10:45] LABS: Amphetamine Urine VISTA NEGATIVE (<1000 ng/mL); Barbiturate Urine VISTA NEGATIVE (< 200 ng/mL); Benzodiazepine Urine VISTA NEGATIVE (< 200 ng/mL); Cocaine Urine VISTA NEGATIVE (< 300 ng/mL); Ecstacy Urine VISTA NEGATIVE (< 500 ng/mL); Methadone Urine VISTA NEGATIVE (< 300 ng/mL); PCP Urine VISTA NEGATIVE (< 25 ng/mL); THC Urine VISTA NEGATIVE (< 50 ng/mL); Vista UDS pH Range 5
== END 2022-04-07 23:59 | disposition home or self-care (01) ==
LOC: LAB 10:11
PROVIDERS: PCP Physician Assistant; Referring Provider Anesthesiology Pain Medicine; Visit Provider Anesthesiology Pain Medicine
DX: F11.20 Opioid dependence, uncomplicated (principal)
CPT/HCPCS: 80307

== ENCOUNTER → 2022-08-05 | Outpatient (CLI) | payer MEDICARE, OTHER, SELFPAY ==
--- NOTE | 2022-08-05 16:36 | RAD_ITS ---
STUDY: X-RAY - PELVIS AND LEFT HIP REASON FOR EXAM: Female, 67 years old. L HIP PAIN TECHNIQUE: 3 views of the pelvis and hip. COMPARISON: July 08, 2021 FINDINGS: There is a non-specific bowel gas pattern. Normal visualized soft tissue structures. There are atherosclerotic vascular calcifications. There is no evidence of a fracture. There is no evidence of avascular necrosis. Moderate degenerative changes are partially seen in the lower lumbar spine. There is mild narrowing with cortical sclerosis and osteophyte formation of the sacroiliac joint consistent with degenerative osteoarthritic changes. Normal bilateral superior and inferior pubic rami. Normal pubic symphysis. Normal bilateral ischial tuberosities. Normal visualized right femoral head. Normal right acetabulum. Normal right hip joint. Normal visualized left femoral head. Normal left acetabulum. Normal left hip joint. RAD/HIP, UNI W/ Pelvis 2-3 Views IMPRESSION: 1. Mild SI joint arthritis hip and at least moderate degenerative changes in the lower lumbar spine. Electronically Signed: Marques Lakhani MD at 13:09 EDT ,
== END | disposition home or self-care (01) ==
LOC: RAD 16:33
PROVIDERS: PCP Physician Assistant; Referring Provider Anesthesiology Pain Medicine; Visit Provider Anesthesiology Pain Medicine
DX: M25.552 Pain in left hip (principal)
CPT/HCPCS: 73502

== ENCOUNTER → 2022-12-01 | Outpatient (CLI) | payer MEDICARE, OTHER, SELFPAY ==
--- NOTE | 2022-12-01 10:14 | MRI_ITS ---
INDICATION: RADICULOPATHY, LOW BACK PAIN, LEFT LEG WEAKNESS EXAMINATION: MRI - MR Spine Lumbar W/O Contrast TECHNIQUE: Multiplanar and multisequence MR images of the lumbar spine. IV Contrast Dosage and Agent: None. COMPARISON: April 18, 2020 FINDINGS: VERTEBRAE: Vertebral body heights are preserved. Normal vertebral bodies and posterior elements. VERTEBRAL ALIGNMENT: No spondylolisthesis. There is preservation of the normal lumbar lordosis. CORD: Normal position and signal intensity of the conus medullaris. L1/L2: Normal disc height and morphology. Normal spinal canal, lateral recesses and neuroforamina. L2/L3: Normal disc height and morphology. Normal spinal canal, lateral recesses and neuroforamina. L3/L4: There is broad-based disc herniation. There is likely impingement of the descending left L4 nerve root. There is moderate to severe right foraminal stenosis and mild right foraminal stenosis. There is bilateral facet arthrosis. There is moderate spinal canal stenosis.. Findings appear grossly stable compared to prior study. L4/L5: There is broad-based disc herniation. There is likely impingement of the descending left L5 nerve root. There is severe left foraminal stenosis with likely impingement of the exiting left L4 nerve root. There is mild right foraminal stenosis. There is ligamentous hypertrophy and facet arthrosis. There is moderate to severe spinal canal stenosis. Findings appear mildly worsened compared to the prior study. L5/S1: There is broad-based disc herniation with moderate left foraminal and mild right foraminal stenosis. There is ligament hypertrophy and facet arthrosis. There is likely impingement on the descending left S1 nerve root. Findings appear grossly stable compared to prior study. SOFT TISSUES: Unremarkable. MRI/Spine Lumbar (Routine) IMPRESSION: Multilevel disc herniations, foraminal and spinal canal stenosis, with areas of impingement of exiting and descending nerve roots primarily on the left side as described. Findings appear grossly stable with the exception of mild worsening at L4/L5. Electronically Signed: Mata Benavidez, at 13:00 EDT ,
[2022-12-01 10:44] VITALS: BP 142/70; PULSE 92; RESP 18; O2SAT 95
[2022-12-01 11:14] VITALS: BP 140/76; PULSE 94; RESP 18; O2SAT 96
== END | disposition home or self-care (01) ==
LOC: MRI 10:10
PROVIDERS: PCP Physician Assistant; Referring Provider Anesthesiology Pain Medicine; Visit Provider Anesthesiology Pain Medicine
DX: M54.16 Radiculopathy, lumbar region (principal)
CPT/HCPCS: 72148

== ENCOUNTER → 2023-03-14 | Outpatient (CLI) | payer MEDICARE, OTHER, SELFPAY ==
[2023-03-14 14:55] LABS: Amphetamine Urine VISTA NEGATIVE (<1000 ng/mL); Barbiturate Urine VISTA NEGATIVE (< 200 ng/mL); Benzodiazepine Urine VISTA NEGATIVE (< 200 ng/mL); Cocaine Urine VISTA NEGATIVE (< 300 ng/mL); Ecstacy Urine VISTA NEGATIVE (< 500 ng/mL); Methadone Urine VISTA NEGATIVE (< 300 ng/mL); PCP Urine VISTA NEGATIVE (< 25 ng/mL); THC Urine VISTA NEGATIVE (< 50 ng/mL); Vista UDS pH Range 5
== END | disposition home or self-care (01) ==
LOC: LAB 13:51
PROVIDERS: PCP Physician Assistant; Referring Provider Anesthesiology Pain Medicine; Visit Provider Anesthesiology Pain Medicine
DX: F11.20 Opioid dependence, uncomplicated (principal)
CPT/HCPCS: 80307

== ENCOUNTER 2023-09-17 16:40 | Emergency (ER) | payer MEDICARE, SELFPAY ==
[2023-09-17 16:41] VITALS: BP 155/71; PULSE 83; RESP 16; TEMP 36.1
[2023-09-17 16:43] VITALS: BP 155/71; PULSE 83; RESP 16; TEMP 36.1; BMI 43.8
--- NOTE | 2023-09-17 17:00 | EX.ED.UPPERE ---
HPI History of Present Illness Chief Complaint: Upper Extremity Injury Detail of Chief Complaint: Injury to left upper extremity due to fall last week Informant: patient Occured/Mechanism Mechanism/Context: Yes injury, Yes blunt trauma and Yes fall Comment: Patient states he was walking up steps. She fell. She hit her face and injured her left hand and forearm. Onset/Context/Timing Onset: Weeks (Greater than 1 week ago) Context: Onset with activity and Sudden Onset Timing: Continuous Quality of Pain: Dull and Aching Location: Left hand and forearm Current Severity: Mild Maximum Severity: Severe Worsened by: Minimal movement or touch Relieved by: Nothing Associated Symptoms Associated Symptoms: Positive for Loss of Funtion (Limited use because of pain. Patient is in a cock-up splint.); Negative for Parasthesia or Weakness Narrative Narrative: Records from outside facility were reviewed. Patient was seen at [facility] and at the [facility]. X-ray reports were reviewed. There was no documentation of any fracture. Patient believes there is a fracture because it hurts too much . Prior similar symptoms: Yes Recent Illness/Hospitalization: Yes [facility] Medical History Atherosclerotic heart disease of [place] coronary artery without angina pectoris Chest tightness or pressure Diastolic CHF Essential hypertension Former smoker, stopped smoking many years ago GERD (gastroesophageal reflux disease) Hyperlipidemia Hypertensive emergency Super obesity Type II diabetes mellitus Ventricular tachycardia Home Medications calcium carbonate 600 mg-vitamin D3 20 mcg (800 unit) tablet 1 ea PO BID 09/27/13 [History Last Taken 07/07/21] cyanocobalamin (vitamin B-12) 1,000 mcg/mL oral drops 1,000 mcg PO DAILY 09/27/13 [History Last Taken 07/08/21] diphenhydramine HCl 25 mg capsule 50 mg PO QHS PRN PRN Sleep 09/27/13 [History Last Taken 07/07/21] fluoxetine 20 mg capsule 20 mg PO DAILY 09/27/13 [History Last Taken 2 Weeks Ago ~06/24/21] pravastatin 20 mg tablet 20 mg PO QHS 09/27/13 [History Last Taken 07/07/21] aspirin 81 mg chewable tablet 81 mg PO QHS 09/28/13 [History Last Taken 07/07/21] oxycodone-acetaminophen 7.5 mg-325 mg tablet 1 tab PO Q6H Back pain 08/21/16 [History Last Taken 07/08/21] pantoprazole 40 mg tablet,delayed release 40 mg PO DAILY #60 tabs 08/22/16 [Rx Last Taken 07/08/21] glipizide 5 mg tablet 5 mg PO BID #60 tabs 06/08/18 [Rx Last Taken 07/08/21] losartan 50 mg tablet 50 mg PO DAILY #30 tabs 06/08/18 [Rx Last Taken 07/08/21] carvedilol 6.25 mg tablet 6.25 mg PO BID 07/08/21 [History Last Taken 07/07/21] furosemide 40 mg tablet 40 mg PO DAILY 07/08/21 [History Last Taken 07/07/21] gabapentin 600 mg tablet 600 mg PO 4X/DAY nerve pain 07/08/21 [History Last Taken 07/08/21] multivitamin 1 tab PO DAILY 07/08/21 [History Last Taken 07/08/21] nitroglycerin 0.4 mg sublingual tablet 0.4 mg sublingual Q5M 07/08/21 [History Last Taken 07/08/21] Allergy/AdvReac Type Severity Reaction Status Date / Time naproxen AdvReac Itching Verified 09/17/23 16:41 Family History Father , in his 50's from [place] CAD (coronary artery disease) Myocardial infarction Sudden cardiac Mother Skin cancer Diabetes Hypertension Brother CAD (coronary artery disease) S/P CABG (coronary artery bypass graft) Grandmother Diabetes Hypertension Uncle Leukemia Surgical History History of left heart catheterization (06/08/18) History of Prudencio-en-Y gastric bypass Social History (Updated 09/17/23 @ 17:[address] Mario Reeves MD) household members: spouse Smoking Status: Former smoker quit date: 05/09/99 pack-years: 25 substance use type: does not use ROS ROS ED Integumentary Reports other Details: Soft tissue swelling and bruising predominantly dorsum left hand ; Denies Abrasions or rash Neurologic Neurologic: Denies paresthesias or weakness Hematologic/Lymphatic Hematologic/Lymphatic: Denies easy bleeding or easy bruising EXAM Physical Exam Const Vital Signs: 09/17/23 16:43 09/17/23 16:41 Temperature 97.0 F L 97.0 F L Temperature Source Temporal Temporal Pulse Rate 83 83 Respiratory Rate 16 16 Blood Pressure 155/71 H 155/71 H Blood Pressure Mean 99 99 Positive well nourished and well developed General Appearance ED: well developed and NAD HEENT HEENT Narrative: Patient has periorbital ecchymosis left eye. Otherwise HEENT exam grossly is unremarkable. Eyes PERRL and EOMs intact bilaterally Eyes Narrative: There is no subconjunctival hemorrhage. Resp normal respiratory effort Cardio regular rate and regular rhythm Extremity Negative for normal to inspection or full ROM Extremity Narrative: Median, radial and ulnar function intact. There is no pain the patient over the lateral medial epicondyle, lateral process or radial head. There is pain to palpation over the dorsum of the left hand. There is ecchymosis noted. There is no ecchymosis on the palmar surface. There is no pain with palpation of the anatomical snuffbox. There is no pain ovation over the distal radius or ulna. Patient does have pain over the second, third and fourth metacarpal bone. Axial loading causes discomfort index and long. The extensor undersign extensor commonness and minimized tendon are functionally intact. Flexor function is intact. Capillary fill is normal. There is no subungual hematoma noted. Skin Skin Narrative: Bruising as mentioned under the extremity portion of the chart Lesions: No no lesions Rashes: No no rashes MDM MDM MDM Narrative Medical decision making narrative: Reports from outside hospitals reviewed. Since patient had 2 x-rays read by 2 different radiologist as negative there is no indication to repeat these x-rays. Patient was told that this in all likelihood is due to soft tissue injury. Since reviewing the x-rays will reinforce this is all soft tissue and her response to pain is greater than 1 would expect. However there is no evidence of fracture on x-rays at 2 other institutions. There is no indication for repeating x-rays. Treatment is elevate ice and take Percocet that she is prescribed by Dr. Nunez since she is in pain management. History & Record Review Additional record(s) reviewed:: Prior outpatient record (Documented in the HPI narrative.) Discharge Plan Triage Chief Complaint: Upper Extremity Injury ED Provider: Mario Reeves Dx/Rx/DC Orders Clinical Impression: Contusion of left hand, Depression, Chronic pain, Injury due to fall, Contusion of face Instructions: ED Hand Contusion Prescriptions: No Action diphenhydramine HCl 25 MG capsule 50 mg PO QHS PRN PRN (Reason: Sleep) Patient Comments: SLEEP pravastatin 20 MG tablet 20 mg PO QHS Patient Comments: CHOLESTEROL cyanocobalamin (vitamin B-12) 1,000 MCG/ML drops 1,000 mcg PO DAILY Patient Comments: VITAMIN fluoxetine 20 MG capsule 20 mg PO DAILY Patient Comments: depression calcium carbonate-vitamin D3 1 EACH tablet 1 ea PO BID Patient Comments: D3 600 (1,500)- 200MG UNIT VITAMIN aspirin 81 MG tablet,chewable 81 mg PO QHS Patient Comments: heart health oxycodone-acetaminophen 1 EACH tablet 1 tab PO Q6H Patient Comments: take 1 tablet by mouth three times a day if needed pantoprazole 40 MG tablet 40 mg PO DAILY Qty: 60 0RF losartan 50 MG tablet 50 mg PO DAILY Qty: 30 0RF glipizide 5 MG tablet 5 mg PO BID Qty: 60 0RF furosemide 40 mg tablet 40 mg PO DAILY carvedilol 6.25 mg tablet 6.25 mg PO BID nitroglycerin 0.4 mg tablet, sublingual 0.4 mg sublingual Q5M Patient Comments: DISSOLVE 1 TABLET UNDER THE TONGUE NEEDED FOR CHEST PAIN- MAY REPEAT EVERY 5 MINUTES IF NEEDED ( MAX 3 DOSES.- IF NO RELIEF CALL 911) multivitamin Tablet 1 tab PO DAILY gabapentin 600 mg tablet 600 mg PO 4X/DAY Primary Care Provider: Jaspreet Bermeo Referrals: Jaspreet Bermeo PA [Primary Care Provider] - 1 Week if not improving Activity Restrictions/Additional Instructions: 1. Recommend removing your rings 2. Recommend elevating your hand above your nose is much as possible 3. Ice to left hand 6-10 times a day 4. Recommend using your hand otherwise she will develop other complications. Disposition Disposition: Home, Self Care
== END 2023-09-17 17:27 | disposition home or self-care (01) ==
LOC: ED 17:17
PROVIDERS: Emergency Provider Emergency Medicine; PCP Physician Assistant; Visit Provider Emergency Medicine
DX: S00.83XA Contusion of other part of head, initial encounter (principal); I11.0 Hypertensive heart disease with heart failure; I50.30 Unspecified diastolic (congestive) heart failure; E11.9 Type 2 diabetes mellitus without complications; F32.A Depression, unspecified; W10.9XXA Fall (on) (from) unspecified stairs and steps, initial encounter; S60.222A Contusion of left hand, initial encounter; Z87.891 Personal history of nicotine dependence; G89.29 Other chronic pain; I25.10 Atherosclerotic heart disease of native coronary artery without angina pectoris; E78.5 Hyperlipidemia, unspecified; Z79.82 Long term (current) use of aspirin; Z79.899 Other long term (current) drug therapy; Z79.84 Long term (current) use of oral hypoglycemic drugs; K21.9 Gastro-esophageal reflux disease without esophagitis
CPT/HCPCS: 99282

== ENCOUNTER → 2024-06-06 | Outpatient (CLI) | payer MEDICARE, SELFPAY ==
--- NOTE | 2024-06-06 11:37 | RAD_ITS ---
PROCEDURE: HIP, UNI W/ PELVIS 2-3 VIEWS REASON FOR EXAM: Hip pain. TECHNIQUE: Three-view right hip to include the AP pelvis COMPARISON: Left hip and pelvis series 08/05/2022. RAD/HIP, UNI W/ Pelvis 2-3 Views IMPRESSION: Prominent arterial calcification has increased since the prior study of 023. Prominent lumbar degenerative disc disease with associated levoscoliosis is pro gressed, as well. Sacroiliac joints appear within the normal range for age. No significant hip joint arthritic process or narrowing is noted. No evidence of femoral head osteonecrosis. No acute fracture or dislocation is noted. If clinical concern persists, short-term follow-up imaging may be obtained to r ule out a currently occult fracture. Reading Location: [id number]
== END | disposition home or self-care (01) ==
LOC: RAD 11:36
PROVIDERS: PCP Physician Assistant; Referring Provider Anesthesiology Pain Medicine; Visit Provider Anesthesiology Pain Medicine
DX: M25.551 Pain in right hip (principal)
CPT/HCPCS: 73502